=== PATIENT | male | born 1950 | race African-American/Black ===

== ENCOUNTER 2019-03-02 15:49 | Observation (INO) | payer MEDICARE, OTHER ==
[~2019-03-02 15:49] MED LIST: ENOXAPARIN SODIUM INJ 40 MG/0.4 ML DISP.SYRIN SUBCUT ONE
[2019-03-02] MEDS ORDERED: ACETAMINOPHEN 325 MG TABLET PO PRN (16:36)
[2019-03-02 16:57] LABS: ABSOLUTE BASOPHILS # (AUTO) 0.1 10^3/uL (0.0-0.2); ABSOLUTE EOSINOPHILS # (AUTO) 0.1 10^3/uL (0.0-0.6); ABSOLUTE MONOCYTES (AUTO) 1.3 10^3/uL (0.1-1.4); ABSOLUTE NEUT (AUTO) 9.6 10^3/uL (1.7-8.2); HEMATOCRIT 34.2 % (37.9-51.0); HEMOGLOBIN 11.6 g/dL (13.5-17.0); LYMPHOCYTES % (AUTO) 21.3 % (13-45); MEAN CORPUSCULAR HEMOGLOBIN 31.1 pg (27.0-33.4); MEAN CORPUSCULAR HGB CONC 34.1 g/dL (32.0-36.0); MEAN CORPUSCULAR VOLUME 91 fl (80-97); MONOCYTES % (AUTO) 9.2 % (3-13); PLATELET COUNT 272 10^3/uL (150-450); RED BLOOD COUNT 3.75 10^6/uL (4.35-5.55); RED CELL DISTRIBUTION WIDTH 12.8 % (11.5-14.0); SEGMENTED NEUTROPHILS % (AUTO) 67.5 % (42-78); TOTAL CELLS COUNTED % (AUTO) 100 %; WHITE BLOOD COUNT 14.2 10^3/uL (4.0-10.5)
[2019-03-02] MEDS ORDERED: DEXTROSE 50%-WATER SYRINGE 25 GM/50 ML DOSE IV PRN (17:00)
[2019-03-02] MEDS ORDERED: GLUCAGON,HUMAN RECOMB 1 MG INJ IM PRN (17:00)
[2019-03-02] MEDS ORDERED: DEXTROSE 40% GEL 15 GM TUBE PO PRN (17:00)
[2019-03-02] MEDS ORDERED: DEXTROSE 40% GEL 15 GM TUBE X 2 PO PRN (17:00)
[2019-03-02] MEDS ORDERED: DEXTROSE 50%-WATER SYRINGE 12.5 GM/25 ML DOSE IV PRN (17:00)
[2019-03-02 17:16] LABS: ALBUMIN 4.2 g/dL (3.5-5.0); ALKALINE PHOSPHATASE 81 U/L (38-126); ANION GAP 13 (5-19); ASPARTATE AMINO TRANSFERASE 37 U/L (17-59); BILIRUBIN,DIRECT 0.2 mg/dL (0.0-0.4); BILIRUBIN,TOTAL 0.4 mg/dL (0.2-1.3); BLOOD UREA NITROGEN 16 mg/dL (7-20); CALCIUM 9.7 mg/dL (8.4-10.2); CARBON DIOXIDE 26 mmol/L (22-30); CHLORIDE 99 mmol/L (98-107); GLUCOSE 145 mg/dL (75-110); POTASSIUM 4.4 mmol/L (3.6-5.0); TOTAL PROTEIN 7.3 g/dL (6.3-8.2)
[2019-03-02] MEDS: NORMAL SALINE 1000 ML 1,000 ML IV PRN (17:31)
[2019-03-02] MEDS ORDERED: LEVOFLOXACIN 750 MG/D5W RTU 750 MG/150 ML RTUPB IV ONE (18:00)
--- NOTE | 2019-03-02 19:17 | RADIOLOGY REPORT (SQ) ---
EXAM DESCRIPTION: CHEST 2 VIEWS COMPLETED DATE/TIME: 03/02/2019 6:59 pm REASON FOR STUDY: pneumonia COMPARISON: 09/24/2012 EXAM PARAMETERS: NUMBER OF VIEWS: two views TECHNIQUE: Digital Frontal and Lateral radiographic views of the chest acquired. RADIATION DOSE: NA LIMITATIONS: none FINDINGS: LUNGS AND PLEURA: No opacities, masses or pneumothorax. No pleural effusion. MEDIASTINUM AND HILAR STRUCTURES: No masses or contour abnormalities. HEART AND VASCULAR STRUCTURES: Heart normal size. No evidence for failure. BONES: No acute findings. HARDWARE: CABG. OTHER: No other significant finding. IMPRESSION: NO ACUTE RADIOGRAPHIC FINDING IN THE CHEST. TECHNICAL DOCUMENTATION: JOB ID: [id number] [employer]- All Rights Reserved Reading location - IP/workstation name: [email or web address]
--- NOTE | 2019-03-02 19:21 | PDOC H&P ---
History of Present Illness Admission Date/PCP: 03/02/19 15:49 MAXX PRAVEENAKARLAJoseluis Patient complains of: Cough, chest pain History of Present Illness: DEBORA EISENBERG is a 69 year old male known to my practice who presented to the office earlier today with 12 days history of worsening productive cough with associated chest pain upon coughing that started 3 days ago. Patient reported initial associated fever, chills, breaking out with sweats, headache, and wheezing. Patient reported use of OTC Coricidin HBP, Acetaminophen, Ibuprofen and Zyrtec for symptoms relief without any significant benefit. His initial evaluation in the office was significant for painful distress from chest pain, elevated blood pressure and laboratory findings including significant leukocy tosis with left shift. He did demonstrate frias-sinuses percussion tenderness. In view of his presentation and clinical findings, he was advised hospitalization for further evaluation and management. His morbidities include HTN, chronic gouty arthritis,CAD s/p CABG, Old SD, DM Type 2; Hyperlipidemia, Osteoarthritis, and Bee sting allergic reaction. Past Medical History Cardiac Medical History: Reports: Coronary Artery Disease, Myocardial Infarction, Hyperlipidema, Hypertension Endocrine Medical History: Reports: Diabetes Mellitus Type 2 Social History Smoking Status: Former Smoker Frequency of Alcohol Use: None Hx Recreational Drug Use: No Drugs: None Hx Prescription Drug Abuse: No - Advance Directive Resuscitation Status: Full Code Family History Family History: Reviewed & Not Pertinent Parental Family History Reviewed: Yes Children Family History Reviewed: Yes Sibling(s) Family History Reviewed.: Yes Medication/Allergy Home Medications: B-Complex with Vitamin C [Super B Complex-Vitamin C] 1 each PO DAILY 09/24/12 Colchicine [Colchicine 0.6 mg Tablet] 0.6 mg PO DAILY 09/24/12 Ezetimibe [Zetia 10 mg Tablet] 10 mg PO DAILY 09/24/12 Febuxostat [Uloric 40 mg Tablet] 40 mg PO DAILY 09/24/12 Glyburide/Metformin HCl [Glyburide-Metformin 5-500 mg] 1 each PO BID 09/24/12 [place]-3 Fatty Acids/Fish Oil [Fish Oil 1,000 mg Capsule] 1 each PO BID 09/24/12 Omeprazole [Prilosec 20 mg Capsule] 40 mg PO DAILY #0 09/24/12 Rosuvastatin Calcium [Crestor 20 mg Tablet] 20 mg PO DAILY 09/24/12 Valsartan/Hydrochlorothiazide [Diovan Hct 160-12.5 mg Tab] 1 tab PO DAILY 09/24/12 Vitamin A 8,000 unit PO DAILY 09/24/12 Allergies/Adverse Reactions: No Known Allergies Allergy (Unverified 09/24/12 13:16) Review of Systems Constitutional: PRESENT: chills, fever(s), headache(s), night sweats Eyes: ABSENT: visual disturbances Ears: ABSENT: hearing changes Nose, Mouth, and Throat: PRESENT: headache(s), sore throat Cardiovascular: PRESENT: chest pain - with coughing Respiratory: PRESENT: cough, sputum Gastrointestinal: ABSENT: abdominal pain, constipation, diarrhea, hematemesis, hematochezia, nausea, vomiting Musculoskeletal: ABSENT: joint swelling Integumentary: ABSENT: rash, wounds Neurological: ABSENT: abnormal gait, abnormal speech, confusion, dizziness, focal weakness, syncope Psychiatric: ABSENT: anxiety, depression, homidical ideation, suicidal ideation Endocrine: ABSENT: cold intolerance, heat intolerance, menstrual abnormalities, polydipsia, polyuria Hematologic/Lymphatic: ABSENT: easy bleeding, easy bruising, lymphadenopathy Allergic/Immunologic: ABSENT: seasonal rhinorrhea Physical Exam Vital Signs: Temp Pulse Resp BP Pulse Ox 98.1 F 87 18 155/89 H 100 03/02/19 16:09 03/02/19 16:09 03/02/19 16:09 03/02/19 16:09 03/02/19 16:09 Intake & Output 03/01/19 03/02/19 03/03/19 06:59 06:59 06:59 Weight 73.5 kg General appearance: PRESENT: mild distress - from pleurisy Head exam: PRESENT: atraumatic, normocephalic Eye exam: PRESENT: conjunctiva pink, EOMI, PERRLA. ABSENT: scleral icterus Ear exam: PRESENT: normal external ear exam Mouth exam: PRESENT: moist Neck exam: PRESENT: full ROM. ABSENT: carotid bruit, JVD, lymphadenopathy, thyromegaly Respiratory exam: PRESENT: clear to auscultation janes Cardiovascular exam: PRESENT: RRR. ABSENT: diastolic murmur, rubs, systolic murmur Vascular exam: ABSENT: pallor GI/Abdominal exam: PRESENT: normal bowel sounds, soft. ABSENT: distended, guarding, mass, organolmegaly, rebound, tenderness Rectal exam: PRESENT: deferred Extremities exam: ABSENT: pedal edema Musculoskeletal exam: PRESENT: ambulatory, normal inspection Neurological exam: PRESENT: alert, awake, oriented to person, oriented to place, oriented to time, oriented to situation, CN II-XII grossly intact. ABSENT: motor sensory deficit Psychiatric exam: PRESENT: appropriate affect, normal mood. ABSENT: homicidal ideation, suicidal ideation Skin exam: PRESENT: dry, warm Results Laboratory Results: 03/02/19 16:44 03/02/19 16:44 03/02/19 03/02/19 16:44 16:44 WBC 14.2 H RBC 3.75 L Hgb 11.6 L Hct 34.2 L MCV 91 MCH 31.1 MCHC 34.1 RDW 12.8 Plt Count 272 Seg Neutrophils % 67.5 Sodium 137.9 Potassium 4.4 Chloride 99 Carbon Dioxide 26 Anion Gap 13 BUN 16 Creatinine 0.70 Est GFR ( Amer) > 60 Glucose 145 H Calcium 9.7 Total Bilirubin 0.4 AST 37 Alkaline Phosphatase 81 Total Protein 7.3 Albumin 4.2 Assessment & Plan - Diagnosis (1) CAP (community acquired pneumonia) Qualifiers: Lung location: unspecified part of lung Is this a current diagnosis for this admission?: Yes Plan: See admitting attending physician orders for details about care plan. (2) Acute sinusitis with symptoms > 10 days Is this a current diagnosis for this admission?: Yes Plan: See admitting attending physician orders for details about care plan. (3) Diabetes mellitus type 2 in nonobese Is this a current diagnosis for this admission?: Yes Plan: See admitting attending physician orders for details about care plan. (4) HTN (hypertension) Qualifiers: Hypertension type: essential hypertension Qualified Code(s): I10 - Essential (primary) hypertension Is this a current diagnosis for this admission?: Yes Plan: See admitting attending physician orders for details about care plan. (5) HLD (hyperlipidemia) Qualifiers: Hyperlipidemia type: unspecified Qualified Code(s): E78.5 - Hyperlipidemia, unspecified Is this a current diagnosis for this admission?: Yes Plan: See admitting attending physician orders for details about care plan. (6) CAD (coronary atherosclerotic disease) Qualifiers: Coronary Disease-Associated Artery/Lesion type: [place] artery [place] vs. transplanted heart: [place] heart Associated angina: without angina Qualified Code(s): I25.10 - Atherosclerotic heart disease of [place] coronary artery without angina pectoris Is this a current diagnosis for this admission?: Yes Plan: See admitting attending physician orders for details about care plan. (7) H/O heart bypass surgery Is this a current diagnosis for this admission?: Yes Plan: See admitting attending physician orders for details about care plan. (8) Chronic gouty arthritis Is this a current diagnosis for this admission?: Yes Plan: See admitting attending physician orders for details about care plan. (9) Osteoarthritis involving multiple joints on both sides of body Is this a current diagnosis for this admission?: Yes Plan: See admitting attending physician orders for details about care plan. (10) Bee sting allergy Is this a current diagnosis for this admission?: Yes Plan: See admitting attending physician orders for details about care plan. - Time Time Spent: 50 to 70 Minutes Medications reviewed and adjusted accordingly: Yes Anticipated discharge: Home Within: Other - Inpatient Certification Based on my medical assessment, after consideration of the patient's comorbidities, presenting symptoms, or acuity I expect that the services needed warrant INPATIENT care.: Yes I certify that my determination is in accordance with my understanding of Medicare's requirements for reasonable and necessary INPATIENT services [42 CFR 412.3e].: Yes Medical Necessity: Significant Comorbidiites Make Outpatient Treatment Too Risky, Need Close Monitoring Due to Risk of Patient Decompensation, Need For IV Fluids, Need For Continuous Telemetry Monitoring, Need for IV Antibiotics, Risk of Complication if Not Cared For in Hospital, Risk of Diagnosis Which Will Require Inpatient Eval/Care/Monitoring Post Hospital Care: D/C Roadway 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
--- NOTE | 2019-03-02 19:35 | ADVANCED CARE ---
Attendance: Patient and spouse. Resuscitation Status: Do Not Resuscitate Discussion: Patient want to be on DNR status. Care Planning Goals: Continue current curative therapy but if there is cardiac arrest patient decided to be DNR. Document(s) Completed: I will change his code status to DNR. Time Spent: 15 minutes.
[2019-03-02] MEDS: GUAIFENESIN SYRP 200 MG/10 ML UDC PO PRN (19:55)
[2019-03-02] MEDS ORDERED: LORATADINE 10 MG TABLET PO PRN (20:47)
[2019-03-02] MEDS: INSULIN LISPRO 100 UNIT/ML 3 ML VIAL SUBCUT SCH (22:14)
[2019-03-02] MEDS: CEFEPIME HCL 2 GM in DEXTROSE 5%-WATER 50 ML IV SCH (22:16)
[2019-03-03] MEDS: PANTOPRAZOLE SODIUM 40 MG TABLET.DR PO SCH (06:12)
[2019-03-03] MEDS: GUAIFENESIN SYRP 200 MG/10 ML UDC PO PRN ×2 (06:13→22:12)
[2019-03-03 07:12] LABS: ANION GAP 11 (5-19); BLOOD UREA NITROGEN 13 mg/dL (7-20); CALCIUM 9.3 mg/dL (8.4-10.2); CARBON DIOXIDE 25 mmol/L (22-30); CHLORIDE 102 mmol/L (98-107); GLUCOSE 149 mg/dL (75-110); POTASSIUM 4.6 mmol/L (3.6-5.0)
[2019-03-03] MEDS: NORMAL SALINE 1000 ML 1,000 ML IV PRN (08:33)
[2019-03-03 09:15] LABS: ABSOLUTE BASOPHILS # (AUTO) 0.1 10^3/uL (0.0-0.2); ABSOLUTE EOSINOPHILS # (AUTO) 0.2 10^3/uL (0.0-0.6); ABSOLUTE LYMPHOCYTES (AUTO) 2.8 10^3/uL (0.5-4.7); ABSOLUTE NEUT (AUTO) 6.8 10^3/uL (1.7-8.2); BASOPHILS % (AUTO) 0.6 % (0-2); EOSINOPHILS % (AUTO) 1.6 % (0-6); HEMATOCRIT 32.4 % (37.9-51.0); HEMOGLOBIN 11.8 g/dL (13.5-17.0); LYMPHOCYTES % (AUTO) 25.7 % (13-45); MEAN CORPUSCULAR HEMOGLOBIN 35.3 pg (27.0-33.4); MEAN CORPUSCULAR HGB CONC 36.3 g/dL (32.0-36.0); MONOCYTES % (AUTO) 9.1 % (3-13); PLATELET COUNT 259 10^3/uL (150-450); RED BLOOD COUNT 3.33 10^6/uL (4.35-5.55); TOTAL CELLS COUNTED % (AUTO) 100 %; WHITE BLOOD COUNT 10.7 10^3/uL (4.0-10.5)
[2019-03-03 09:16] LABS: MEAN CORPUSCULAR VOLUME 97 fl (80-97)
[2019-03-03] MEDS: ENOXAPARIN SODIUM INJ 40 MG/0.4 ML DISP.SYRIN SUBCUT SCH (09:47)
[2019-03-03] MEDS: INSULIN LISPRO 100 UNIT/ML 3 ML VIAL SUBCUT SCH ×4 (09:47→22:11)
[2019-03-03] MEDS: CEFEPIME HCL 2 GM in DEXTROSE 5%-WATER 50 ML IV SCH ×2 (09:47→22:10)
--- NOTE | 2019-03-03 17:40 | PDOC PROGRESS REPORT ---
Subjective Progress Note for:: 03/03/19 Subjective:: Patient reported chills and sweating. Post nasal drip is less. Continue to experience chest pain with coughing but less sputum production. No difficulty with breathing. Reason For Visit: COMMUNITY AQUIRED PNEUMONIA,SINUSITIS Physical Exam Vital Signs: Temp Pulse Resp BP Pulse Ox 98.4 F 69 16 137/90 H 97 03/03/19 04:08 03/03/19 07:00 03/03/19 04:08 03/03/19 04:08 03/03/19 04:08 Intake & Output 03/02/19 03/03/19 03/04/19 06:59 06:59 06:59 Intake Total 908 Balance 908 Weight 73.5 kg General appearance: PRESENT: no acute distress Head exam: PRESENT: atraumatic, normocephalic Eye exam: PRESENT: conjunctiva pink, EOMI, PERRLA. ABSENT: scleral icterus Ear exam: PRESENT: normal external ear exam Mouth exam: PRESENT: moist Throat exam: PRESENT: post pharyngeal erythema Neck exam: PRESENT: full ROM. ABSENT: carotid bruit, JVD, lymphadenopathy, thyr omegaly Respiratory exam: PRESENT: clear to auscultation janes Cardiovascular exam: PRESENT: RRR. ABSENT: diastolic murmur, rubs, systolic murmur Vascular exam: ABSENT: pallor GI/Abdominal exam: PRESENT: normal bowel sounds, soft. ABSENT: distended, guarding, mass, organolmegaly, rebound, tenderness Extremities exam: ABSENT: joint swelling Musculoskeletal exam: PRESENT: normal inspection Neurological exam: PRESENT: alert, awake, oriented to person, oriented to place, oriented to time, oriented to situation, CN II-XII grossly intact. ABSENT: motor sensory deficit Psychiatric exam: PRESENT: appropriate affect, normal mood. ABSENT: homicidal ideation, suicidal ideation Skin exam: PRESENT: dry, warm Results Laboratory Results: 03/03/19 06:02 03/02/19 03/02/19 03/03/19 16:44 16:44 06:02 WBC 14.2 H Cancelled RBC 3.75 L Cancelled Hgb 11.6 L Cancelled Hct 34.2 L Cancelled MCV 91 Cancelled MCH 31.1 Cancelled MCHC 34.1 Cancelled RDW 12.8 Cancelled Plt Count 272 Cancelled Seg Neutrophils % 67.5 Cancelled Sodium 137.9 Potassium 4.4 Chloride 99 Carbon Dioxide 26 Anion Gap 13 BUN 16 Creatinine 0.70 Est GFR ( Amer) > 60 Glucose 145 H Calcium 9.7 Total Bilirubin 0.4 AST 37 Alkaline Phosphatase 81 Total Protein 7.3 Albumin 4.2 03/03/19 06:02 WBC RBC Hgb Hct MCV MCH MCHC RDW Plt Count Seg Neutrophils % Sodium 137.5 Potassium 4.6 Chloride 102 Carbon Dioxide 25 Anion Gap 11 BUN 13 Creatinine 0.76 Est GFR ( Amer) > 60 Glucose 149 H Calcium 9.3 Total Bilirubin AST Alkaline Phosphatase Total Protein Albumin Impressions: Chest X-Ray 03/02/19 00:00 IMPRESSION: NO ACUTE RADIOGRAPHIC FINDING IN THE CHEST. Assessment & Plan - Diagnosis (1) CAP (community acquired pneumonia) Qualifiers: Lung location: unspecified part of lung Is this a current diagnosis for this admission?: Yes (2) Acute sinusitis with symptoms > 10 days Is this a current diagnosis for this admission?: Yes (3) Diabetes mellitus type 2 in nonobese Is this a current diagnosis for this admission?: Yes (4) HTN (hypertension) Qualifiers: Hypertension type: essential hypertension Qualified Code(s): I10 - Essential (primary) hypertension Is this a current diagnosis for this admission?: Yes (5) HLD (hyperlipidemia) Qualifiers: Hyperlipidemia type: unspecified Qualified Code(s): E78.5 - Hyperlipidemia, unspecified Is this a current diagnosis for this admission?: Yes (6) CAD (coronary atherosclerotic disease) Qualifiers: Coronary Disease-Associated Artery/Lesion type: [place] artery [place] vs. transplanted heart: [place] heart Associated angina: without angina Qualified Code(s): I25.10 - Atherosclerotic heart disease of [place] coronary artery without angina pectoris Is this a current diagnosis for this admission?: Yes (7) H/O heart bypass surgery Is this a current diagnosis for this admission?: Yes (8) Chronic gouty arthritis Is this a current diagnosis for this admission?: Yes (9) Osteoarthritis involving multiple joints on both sides of body Is this a current diagnosis for this admission?: Yes (10) Bee sting allergy Is this a current diagnosis for this admission?: Yes - Time Time Spent with patient: 25-34 minutes Medications reviewed and adjusted accordingly: Yes Anticipated discharge: Home Within: Other - Inpatient Certification Based on my medical assessment, after consideration of the patient's comorbidities, presenting symptoms, or acuity I expect that the services needed warrant INPATIENT care.: Yes I certify that my determination is in accordance with my understanding of Medicare's requirements for reasonable and necessary INPATIENT services [42 CFR 412.3e].: Yes Medical Necessity: Significant Comorbidiites Make Outpatient Treatment Too Risky, Need Close Monitoring Due to Risk of Patient Decompensation, Need For IV Fluids, Need For Continuous Telemetry Monitoring, Need for IV Antibiotics, Risk of Complication if Not Cared For in Hospital, Risk of Diagnosis Which Will Require Inpatient Eval/Care/Monitoring Post Hospital Care: D/C Foil 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 Follow up on culture findings. Obtain CBC with diff in AM.
[2019-03-03 17:53] LABS: ABSOLUTE BASOPHILS # (AUTO) 0.1 10^3/uL (0.0-0.2); ABSOLUTE EOSINOPHILS # (AUTO) 0.2 10^3/uL (0.0-0.6); BASOPHILS % (AUTO) 0.9 % (0-2); EOSINOPHILS % (AUTO) 1.8 % (0-6); HEMATOCRIT 32.8 % (37.9-51.0); HEMOGLOBIN 11.5 g/dL (13.5-17.0); LYMPHOCYTES % (AUTO) 26.4 % (13-45); MEAN CORPUSCULAR HEMOGLOBIN 32.7 pg (27.0-33.4); MEAN CORPUSCULAR VOLUME 94 fl (80-97); MONOCYTES % (AUTO) 8.9 % (3-13); PLATELET COUNT 259 10^3/uL (150-450); TOTAL CELLS COUNTED % (AUTO) 100 %; WHITE BLOOD COUNT 11.3 10^3/uL (4.0-10.5)
[2019-03-03] MEDS ORDERED: OMEGA PO SCH (18:00)
[2019-03-03] MEDS ORDERED: METFORMIN HCL PO SCH (18:00)
[2019-03-03] MEDS ORDERED: GLYBURIDE PO SCH (18:00)
[2019-03-03] MEDS ORDERED: FATTY ACIDS PO SCH (18:00)
[2019-03-03] MEDS: LEVOFLOXACIN 750 MG/D5W RTU 750 MG/150 ML RTUPB IV SCH (18:05)
[2019-03-03] MEDS: GLYBURIDE 5 MG TABLET PO SCH (18:43)
[2019-03-03] MEDS: OMEGA-3 ACID ETHYL ESTERS 1 GM CAPSULE PO SCH (18:43)
[2019-03-03] MEDS: METFORMIN HCL 500 MG TABLET PO SCH (18:43)
[2019-03-03] MEDS: SIMVASTATIN 40 MG TABLET PO SCH (22:12)
[2019-03-03] MEDS: EZETIMIBE 10 MG TABLET PO SCH (22:12)
[2019-03-04] MEDS: PANTOPRAZOLE SODIUM 40 MG TABLET.DR PO SCH ×2 (05:32→05:41)
[2019-03-04] MEDS: NORMAL SALINE 1000 ML 1,000 ML IV PRN ×2 (05:35→20:55)
[2019-03-04] MEDS: INSULIN LISPRO 100 UNIT/ML 3 ML VIAL SUBCUT SCH ×4 (08:58→21:44)
[2019-03-04] MEDS: METFORMIN HCL 500 MG TABLET PO SCH ×2 (09:59→18:15)
[2019-03-04] MEDS: GLYBURIDE 5 MG TABLET PO SCH ×2 (09:59→18:15)
[2019-03-04] MEDS: HYDROCHLOROTHIAZIDE 12.5 MG TABLET PO SCH (09:59)
[2019-03-04] MEDS ORDERED: LYCOPENE PO SCH (10:00)
[2019-03-04] MEDS: LOSARTAN POTASSIUM 50 MG TABLET PO SCH (10:00)
[2019-03-04] MEDS ORDERED: [UNRECOGNIZED DRUG - OTHER] PO SCH (10:00)
[2019-03-04] MEDS: OMEGA-3 ACID ETHYL ESTERS 1 GM CAPSULE PO SCH ×2 (10:00→18:15)
[2019-03-04] MEDS ORDERED: (PENDING PHARMACY ID) (Losartan/Hydrochlorothiazide [Losartan-Hctz 50-12.5 Mg Tab] 1 EACH) PO SCH (10:00)
[2019-03-04] MEDS ORDERED: MULTIVIT MINERALS PO SCH (10:00)
[2019-03-04] MEDS ORDERED: [UNRECOGNIZED DRUG - OTHER] PO SCH (10:00)
[2019-03-04] MEDS ORDERED: SIMVASTATIN PO SCH (10:00)
[2019-03-04] MEDS: ALLOPURINOL 100 MG TABLET PO SCH (10:00)
[2019-03-04] MEDS: MULTIVITAMIN TABLET PO SCH (10:00)
[2019-03-04] MEDS: ASPIRIN 81 MG TABLET, ENT COATED PO SCH (10:00)
[2019-03-04] MEDS ORDERED: EZETIMIBE PO SCH (10:00)
[2019-03-04] MEDS: CEFEPIME HCL 2 GM in DEXTROSE 5%-WATER 50 ML IV SCH (10:04)
[2019-03-04] MEDS: ENOXAPARIN SODIUM INJ 40 MG/0.4 ML DISP.SYRIN SUBCUT SCH (10:06)
[2019-03-04] MEDS: LEVOFLOXACIN 750 MG/D5W RTU 750 MG/150 ML RTUPB IV SCH (18:17)
--- NOTE | 2019-03-04 18:47 | PDOC PROGRESS REPORT ---
Subjective Progress Note for:: 03/04/19 Subjective:: Patient reported improvement in his nasal and sinus congestion but had episode of near choking last night. No chest pain. Coughing remain productive. No fever or chills. Remain on IV antibiotic therapy. No nausea. vomiting or abdominal pain. Reason For Visit: COMMUNITY AQUIRED PNEUMONIA,SINUSITIS Physical Exam Vital Signs: Temp Pulse Resp BP Pulse Ox 97.6 F 71 20 148/83 H 98 03/04/19 17:00 03/04/19 17:00 03/04/19 17:00 03/04/19 17:00 03/04/19 17:00 Intake & Output 03/03/19 03/04/19 03/05/19 06:59 06:59 06:59 Intake Total 1908 2928 748 Output Total 300 Balance 1908 2628 748 Weight 73.5 kg 79.1 kg Physical Exam: General appearance: PRESENT: no acute distress Head exam: PRESENT: atraumatic, normocephalic Eye exam: PRESENT: conjunctiva pink, EOMI, PERRLA. ABSENT: pallor, scleral icterus Ear exam: PRESENT: normal external ear exam Mouth exam: PRESENT: moist Throat exam: PRESENT: resolved post pharyngeal erythema Neck exam: PRESENT: full ROM. ABSENT: carotid bruit, JVD, lymphadenopathy, thyr oidal Respiratory exam: PRESENT: clear to auscultation janes Cardiovascular exam: PRESENT: RRR. ABSENT: diastolic murmur, rubs, systolic murmur GI/Abdominal exam: PRESENT: normal bowel sounds, soft. ABSENT: distended, guarding, mass, organomegaly, rebound, tenderness Extremities exam: ABSENT: joint swelling Musculoskeletal exam: PRESENT: normal inspection Neurological exam: PRESENT: alert, awake, oriented to person, oriented to place, oriented to time, oriented to situation, CN II-XII grossly intact. ABSENT: motor sensory deficit Psychiatric exam: PRESENT: appropriate affect, normal mood. ABSENT: homicidal ideation, suicidal ideation Skin exam: PRESENT: dry, warm Results Laboratory Results: 03/03/19 17:45 03/03/19 06:02 03/02/19 18:10 Sputum Gram Stain - Final 03/02/19 18:10 Sputum Sputum Culture - Final NORMAL CHEL Impressions: Chest X-Ray 03/02/19 00:00 IMPRESSION: NO ACUTE RADIOGRAPHIC FINDING IN THE CHEST. Assessment & Plan - Diagnosis (1) CAP (community acquired pneumonia) Qualifiers: Lung location: unspecified part of lung Is this a current diagnosis for this admission?: Yes (2) Acute sinusitis with symptoms > 10 days Is this a current diagnosis for this admission?: Yes (3) Diabetes mellitus type 2 in nonobese Is this a current diagnosis for this admission?: Yes (4) HTN (hypertension) Qualifiers: Hypertension type: essential hypertension Qualified Code(s): I10 - Essential (primary) hypertension Is this a current diagnosis for this admission?: Yes (5) HLD (hyperlipidemia) Qualifiers: Hyperlipidemia type: unspecified Qualified Code(s): E78.5 - Hyperlipidemia, unspecified Is this a current diagnosis for this admission?: Yes (6) CAD (coronary atherosclerotic disease) Qualifiers: Coronary Disease-Associated Artery/Lesion type: [place] artery [place] vs. transplanted heart: [place] heart Associated angina: without angina Qualified Code(s): I25.10 - Atherosclerotic heart disease of [place] coronary artery without angina pectoris Is this a current diagnosis for this admission?: Yes (7) H/O heart bypass surgery Is this a current diagnosis for this admission?: Yes (8) Chronic gouty arthritis Is this a current diagnosis for this admission?: Yes (9) Osteoarthritis involving multiple joints on both sides of body Is this a current diagnosis for this admission?: Yes (10) Bee sting allergy Is this a current diagnosis for this admission?: Yes - Time Time Spent with patient: 25-34 minutes Medications reviewed and adjusted accordingly: Yes Anticipated discharge: Home Within: within 24 hours - Inpatient Certification Based on my medical assessment, after consideration of the patient's comorbidities, presenting symptoms, or acuity I expect that the services needed warrant INPATIENT care.: Yes I certify that my determination is in accordance with my understanding of [facility]'s requirements for reasonable and necessary INPATIENT services [42 CFR 412.3e].: Yes Medical Necessity: Significant Comorbidiites Make Outpatient Treatment Too Risky, Need Close Monitoring Due to Risk of Patient Decompensation, Need For IV Fluids, Need For Continuous Telemetry Monitoring, Need for IV Antibiotics, Risk of Complication if Not Cared For in Hospital, Risk of Diagnosis Which Will Require Inpatient Eval/Care/Monitoring Post Hospital Care: D/C Welt Slasher Documentation - Plan Summary Plan Summary: Obtain CBC with diff in am. Continue IV Cefepime and Levofloxacin coverage.
[2019-03-04 19:16] LABS: ABSOLUTE BASOPHILS # (AUTO) 0.1 10^3/uL (0.0-0.2); ABSOLUTE EOSINOPHILS # (AUTO) 0.4 10^3/uL (0.0-0.6); ABSOLUTE LYMPHOCYTES (AUTO) 3.5 10^3/uL (0.5-4.7); ABSOLUTE NEUT (AUTO) 8.5 10^3/uL (1.7-8.2); EOSINOPHILS % (AUTO) 2.8 % (0-6); HEMATOCRIT 34.8 % (37.9-51.0); HEMOGLOBIN 12.1 g/dL (13.5-17.0); LYMPHOCYTES % (AUTO) 25.6 % (13-45); MEAN CORPUSCULAR HEMOGLOBIN 32.1 pg (27.0-33.4); MEAN CORPUSCULAR HGB CONC 34.7 g/dL (32.0-36.0); MEAN CORPUSCULAR VOLUME 93 fl (80-97); MONOCYTES % (AUTO) 7.7 % (3-13); PLATELET COUNT 290 10^3/uL (150-450); RED BLOOD COUNT 3.76 10^6/uL (4.35-5.55); RED CELL DISTRIBUTION WIDTH 12.6 % (11.5-14.0); SEGMENTED NEUTROPHILS % (AUTO) 62.9 % (42-78); TOTAL CELLS COUNTED % (AUTO) 100 %; WHITE BLOOD COUNT 13.5 10^3/uL (4.0-10.5)
[2019-03-04] MEDS: CEFEPIME 2 GM/D5W RTU 2 GM/50 ML RTUPB IV SCH (21:44)
[2019-03-04] MEDS: EZETIMIBE 10 MG TABLET PO SCH (21:44)
[2019-03-04] MEDS: SIMVASTATIN 40 MG TABLET PO SCH (21:46)
[2019-03-05] MEDS: PANTOPRAZOLE SODIUM 40 MG TABLET.DR PO SCH (06:47)
[2019-03-05] MEDS: INSULIN LISPRO 100 UNIT/ML 3 ML VIAL SUBCUT SCH ×3 (08:28→16:56)
[2019-03-05] MEDS: ALLOPURINOL 100 MG TABLET PO SCH (09:45)
[2019-03-05] MEDS: HYDROCHLOROTHIAZIDE 12.5 MG TABLET PO SCH (09:45)
[2019-03-05] MEDS: OMEGA-3 ACID ETHYL ESTERS 1 GM CAPSULE PO SCH ×2 (09:45→17:08)
[2019-03-05] MEDS: ASPIRIN 81 MG TABLET, ENT COATED PO SCH (09:46)
[2019-03-05] MEDS: METFORMIN HCL 500 MG TABLET PO SCH ×2 (09:46→17:08)
[2019-03-05] MEDS: MULTIVITAMIN TABLET PO SCH (09:46)
[2019-03-05] MEDS: GLYBURIDE 5 MG TABLET PO SCH ×2 (09:47→17:08)
[2019-03-05] MEDS: LOSARTAN POTASSIUM 50 MG TABLET PO SCH (09:47)
[2019-03-05] MEDS: ENOXAPARIN SODIUM INJ 40 MG/0.4 ML DISP.SYRIN SUBCUT SCH (09:49)
[2019-03-05] MEDS: CEFEPIME 2 GM/D5W RTU 2 GM/50 ML RTUPB IV SCH (09:50)
[2019-03-05] MEDS: NORMAL SALINE 1000 ML 1,000 ML IV PRN (10:40)
[2019-03-05] MEDS ORDERED: LEVOFLOXACIN 750 MG TABLET PO SCH (18:00)
[2019-03-05 19:41] LABS: ABSOLUTE BASOPHILS # (AUTO) 0.1 10^3/uL (0.0-0.2); ABSOLUTE EOSINOPHILS # (AUTO) 0.4 10^3/uL (0.0-0.6); ABSOLUTE LYMPHOCYTES (AUTO) 3.6 10^3/uL (0.5-4.7); ABSOLUTE MONOCYTES (AUTO) 0.9 10^3/uL (0.1-1.4); ABSOLUTE NEUT (AUTO) 8.5 10^3/uL (1.7-8.2); BASOPHILS % (AUTO) 0.6 % (0-2); EOSINOPHILS % (AUTO) 2.7 % (0-6); HEMATOCRIT 34.6 % (37.9-51.0); HEMOGLOBIN 11.8 g/dL (13.5-17.0); MEAN CORPUSCULAR HEMOGLOBIN 30.5 pg (27.0-33.4); MEAN CORPUSCULAR HGB CONC 34.1 g/dL (32.0-36.0); MEAN CORPUSCULAR VOLUME 90 fl (80-97); MONOCYTES % (AUTO) 6.8 % (3-13); PLATELET COUNT 298 10^3/uL (150-450); RED BLOOD COUNT 3.87 10^6/uL (4.35-5.55); RED CELL DISTRIBUTION WIDTH 12.8 % (11.5-14.0); SEGMENTED NEUTROPHILS % (AUTO) 62.9 % (42-78); TOTAL CELLS COUNTED % (AUTO) 100 %; WHITE BLOOD COUNT 13.5 10^3/uL (4.0-10.5)
--- NOTE | 2019-03-05 20:13 | PDOC DISCHARGE SUMMARY ---
General - Admit/Disc Date/PCP Admission Date/Primary Care Provider: 03/02/19 15:49 MAXX MCKEON MD Discharge Date: 03/05/19 - Discharge Diagnosis (1) CAP (community acquired pneumonia) Is this a current diagnosis for this admission?: Yes (2) Acute sinusitis with symptoms > 10 days Is this a current diagnosis for this admission?: Yes (3) Diabetes mellitus type 2 in nonobese Is this a current diagnosis for this admission?: Yes (4) HTN (hypertension) Is this a current diagnosis for this admission?: Yes (5) HLD (hyperlipidemia) Is this a current diagnosis for this admission?: Yes (6) CAD (coronary atherosclerotic disease) Is this a current diagnosis for this admission?: Yes (7) H/O heart bypass surgery Is this a current diagnosis for this admission?: Yes (8) Chronic gouty arthritis Is this a current diagnosis for this admission?: Yes (9) Osteoarthritis involving multiple joints on both sides of body Is this a current diagnosis for this admission?: Yes (10) Bee sting allergy Is this a current diagnosis for this admission?: Yes - Additional Information Resuscitation Status: Do Not Resuscitate Prescriptions: Loratadine [Claritin 10 mg Tablet] 10 mg PO DAILY #30 tablet Levofloxacin [Levaquin 500 mg Tablet] 500 mg PO DAILY #5 tablet Home Medications: Acetaminophen [Tylenol] 500 mg PO DAILY 03/03/19 Allopurinol [Zyloprim 100 mg Tablet] 100 mg PO DAILY 03/03/19 Aspirin [Ecotrin 81 mg EC Tablet] 81 mg PO DAILY 03/03/19 Ezetimibe/Simvastatin [Ezetimibe-Simvastatin 10-40 mg] 1 each PO DAILY 03/03/19 Glucosam/Chondr/Collagn/Hyalur [Glucosamine & Chondroitin Cap] 1 each PO DAILY 03/03/19 Glyburide/Metformin HCl [Glyburide-Metformin 5-500 mg] 1 each PO BID 03/03/19 Losartan/Hydrochlorothiazide [Losartan-Hctz 50-12.5 mg Tab] 1 each PO DAILY 03/03/19 Multivit-Minerals/FA/Lycopene [One Daily For Men Tablet] 1 each PO DAILY 03/03/19 Savage-3 Fatty Acids [Savage-3] 2,000 mg PO BID 03/03/19 Levofloxacin [Levaquin 500 mg Tablet] 500 mg PO DAILY #5 tablet 03/05/19 Loratadine [Claritin 10 mg Tablet] 10 mg PO DAILY #30 tablet 03/05/19 History of Present Illness Patient complains of: Productive cough, chest pain upon coughing, fever History of Present Illness: DEBORA EISENBERG is a 69 year old male known to my practice who presented to the office earlier today with 12 days history of worsening productive cough with associated chest pain upon coughing that started 3 days ago. Patient reported initial associated fever, chills, breaking out with sweats, headache, and wheezing. Patient reported use of OTC Coricidin HBP, Acetaminophen, Ibuprofen and Zyrtec for symptoms relief without any significant benefit. His initial evaluation in the office was significant for painful distress from chest pain, elevated blood pressure and laboratory findings including significant leukocytosis with left shift. He did demonstrate frias-sinuses percussion te nderness. In view of his presentation and clinical findings, he was advised hospitalization for further evaluation and management. His morbidities include DM Type 2; Hyperlipidemia, Hypertension, chronic gouty arthritis,CAD s/p CABG, Old [place], Osteoarthritis, and Bee sting allergic reaction. Hospital Course Hospital Course: He was admitted with concern for community acquired pneumonia and sinusitis with significant leukocytosis. His chest X ray was devoid of any acute process. He was treated with IV antibiotic and oral antihistamine. His sputum culture r evealed normal juancarlos but his blood culture is no growth at the time of his discharge. His leukocytosis did show slight improvement with significant resolution f his associated presenting symptoms. He will be discharged home today and follow up in the office as instructed upon discharge. Physical Exam Vital Signs: Temp Pulse Resp BP Pulse Ox 97.6 F 76 18 150/88 H 100 03/05/19 16:42 03/05/19 16:42 03/05/19 16:42 03/05/19 16:42 03/05/19 16:42 Intake & Output 03/04/19 03/05/19 03/06/19 06:59 06:59 06:59 Intake Total 2928 2468 2210 Output Total 300 600 Balance 2628 2468 1610 Weight 79.1 kg 75.6 kg Physical Exam: General appearance: PRESENT: no acute distress Head exam: PRESENT: atraumatic, normocephalic Eye exam: PRESENT: conjunctiva pink, EOMI, PERRLA. ABSENT: pallor, scleral icterus Ear exam: PRESENT: normal external ear exam Mouth exam: PRESENT: moist Throat exam: PRESENT: resolved post pharyngeal erythema Neck exam: PRESENT: full ROM. ABSENT: carotid bruit, JVD, lymphadenopathy, thyroidal Respiratory exam: PRESENT: clear to auscultation janes Cardiovascular exam: PRESENT: RRR. ABSENT: diastolic murmur, rubs, systolic murmur GI/Abdominal exam: PRESENT: normal bowel sounds, soft. ABSENT: distended, guarding, mass, organomegaly, rebound, tenderness Extremities exam: ABSENT: joint swelling Musculoskeletal exam: PRESENT: normal inspection Neurological exam: PRESENT: alert, awake, oriented to person, oriented to place, oriented to time, oriented to situation, CN II-XII grossly intact. ABSENT: motor sensory deficit Psychiatric exam: PRESENT: appropriate affect, normal mood. ABSENT: homicidal ideation, suicidal ideation Skin exam: PRESENT: dry, warm Results Laboratory Results: 03/05/19 19:23 03/03/19 06:02 03/05/19 19:23 WBC 13.5 H RBC 3.87 L Hgb 11.8 L Hct 34.6 L MCV 90 MCH 30.5 MCHC 34.1 RDW 12.8 Plt Count 298 Seg Neutrophils % 62.9 Impressions: Chest X-Ray 03/02/19 00:00 IMPRESSION: NO ACUTE RADIOGRAPHIC FINDING IN THE CHEST. Qualifiers - * PATIENT BEING DISCHARGED WITH ANY OF THE FOLLOWING DIAGNOSIS: No Acute Heart Failure - Is this a Heart Failure Patient?: No Plan Discharge Plan: Discharge home today and follow up in the office as instructed upon discharge.
[2019-03-05 21:08] VITALS: BP 133/80
== END 2019-03-05 21:18 | disposition home or self-care (01) ==
LOC: INTOOBSV 15:49 → UNDOADMIN 15:49 → 5 15:49
PROVIDERS: ADMIT Internal Medicine Geriatric Medicine; ATTEND Internal Medicine Geriatric Medicine
DX: J18.9 Pneumonia, unspecified organism (principal); J01.90 Acute sinusitis, unspecified; E11.9 Type 2 diabetes mellitus without complications; I10 Essential (primary) hypertension; E78.5 Hyperlipidemia, unspecified; I25.10 Atherosclerotic heart disease of native coronary artery without angina pectoris; Z95.1 Presence of aortocoronary bypass graft; M1A.9XX0 Chronic gout, unspecified, without tophus (tophi); M15.9 Polyosteoarthritis, unspecified; I25.2 Old myocardial infarction; R09.89 Other specified symptoms and signs involving the circulatory and respiratory systems; Z66 Do not resuscitate; Z91.030 Bee allergy status; Z79.82 Long term (current) use of aspirin; Z79.899 Other long term (current) drug therapy; Z79.84 Long term (current) use of oral hypoglycemic drugs; Z87.891 Personal history of nicotine dependence
CPT/HCPCS: 36415 ×4; 87040; 87070 ×2; 87205; 82962 ×4; 85025 ×4; 80048; 80053; 71046; G0379; G0378 ×3; G0103; A9270 ×29; J1650 ×4; J0692 ×5; J7060 ×3; J7030 ×4; J1956 ×3; J3490 ×3; J1815

== ENCOUNTER 2019-07-12 11:56 | Inpatient (IN) | payer MEDICARE, OTHER ==
--- NOTE | 2019-07-12 13:58 | ER Document Report ---
HPI - HPI Time Seen by Provider: 07/12/19 13:43 Pain Level: 5 Notes: 69-year-old male patient presents emergency department with fever, chills, nausea and abdominal pain. Patient is a direct admit from Dr. Ivy. He has orders in place. He states his symptoms have been going on for about 2 days. He reports that he had diarrhea but this has now subsided. - REPRODUCTIVE Reproductive: DENIES: : Past Medical History - General Information source: Patient - Social History Smoking Status: Unknown if Ever Smoked Frequency of alcohol use: None Drug Abuse: None Family History: Reviewed & Not Pertinent Patient has suicidal ideation: No Patient has homicidal ideation: No - Past Medical History Cardiac Medical History: Reports: Hx Coronary Artery Disease, Hx Heart Attack, Hx Hypercholesterolemia, Hx Hypertension Endocrine Medical History: Reports: Hx Diabetes Mellitus Type 2 Past Surgical History: Reports: Hx Cardiac Surgery - bypass x5, x1 stent - Immunizations Hx Pneumococcal Vaccination: 09/25/12 Vertical Provider Document - CONSTITUTIONAL Notes: PHYSICAL EXAMINATION: GENERAL: Well-appearing, well-nourished and in no acute distress. HEAD: Atraumatic, normocephalic. EYES: Pupils equal round extraocular movements intact, conjunctiva are normal. ENT: Nares patent NECK: Normal range of motion LUNGS: No respiratory distress Abdomen: Abdomen soft, mild tenderness bilaterally to the lower quadrants as well as bilateral lumbar paraspinous region. Musculoskeletal: Normal range of motion NEUROLOGICAL: Normal speech, normal gait. PSYCH: Normal mood, normal affect. SKIN: Warm, Dry, normal turgor, no rashes or lesions noted. - INFECTION CONTROL TRAVEL OUTSIDE OF THE [place] IN LAST 30 DAYS: No Course - Re-evaluation Re-evalutation: Patient does not appear toxic, he has orders from Dr. Connelly for direct admission. There are no beds available in the tower, he will be held in the ED. [place] entering all of his orders at this time. - Vital Signs Vital signs: Temp Pulse Resp BP Pulse Ox 97.9 F 82 16 133/64 H 98 07/12/19 12:03 07/12/19 12:03 07/12/19 12:03 07/12/19 12:03 07/12/19 12:03 Discharge - Discharge Clinical Impression: Chills Fever Qualifiers: Fever type: unspecified Qualified Code(s): R50.9 - Fever, unspecified Leukocytosis Qualifiers: Leukocytosis type: unspecified Qualified Code(s): D72.829 - Elevated white blood cell count, unspecified Condition: Stable Disposition: ADMITTED INPATIENT Admitting Provider: [facility] Unit Admitted: Telemetry Referrals: MAXX CONNELLY MD [Primary Care Provider] - Follow up as needed
[2019-07-12] MEDS ORDERED: ACETAMINOPHEN 325 MG TABLET PO PRN (14:29)
[2019-07-12] MEDS ORDERED: MORPHINE SULFATE 10 MG/ML INJ IV PRN (14:31)
--- NOTE | 2019-07-12 14:37 | RADIOLOGY REPORT (SQ) ---
EXAM DESCRIPTION: CHEST 2 VIEWS COMPLETED DATE/TIME: 07/12/2019 2:23 pm REASON FOR STUDY: cad COMPARISON: 03/02/2019 EXAM PARAMETERS: NUMBER OF VIEWS: two views TECHNIQUE: Digital Frontal and Lateral radiographic views of the chest acquired. RADIATION DOSE: NA LIMITATIONS: none FINDINGS: LUNGS AND PLEURA: No opacities, masses or pneumothorax. No pleural effusion. MEDIASTINUM AND HILAR STRUCTURES: No masses or contour abnormalities. HEART AND VASCULAR STRUCTURES: Heart normal size. No evidence for failure. BONES: No acute findings. HARDWARE: Sternotomy wires are in place. OTHER: No other significant finding. IMPRESSION: NO ACUTE RADIOGRAPHIC FINDING IN THE CHEST. TECHNICAL DOCUMENTATION: JOB ID: [id number]- All Rights Reserved Reading location - IP/workstation name: [email or web address]
[2019-07-12 15:23] LABS: ABSOLUTE BASOPHILS # (AUTO) 0.1 10^3/uL (0.0-0.2); ABSOLUTE EOSINOPHILS # (AUTO) 0.1 10^3/uL (0.0-0.6); ABSOLUTE LYMPHOCYTES (AUTO) 4.4 10^3/uL (0.5-4.7); ABSOLUTE MONOCYTES (AUTO) 1.6 10^3/uL (0.1-1.4); ABSOLUTE NEUT (AUTO) 9.4 10^3/uL (1.7-8.2); BASOPHILS % (AUTO) 0.3 % (0-2); EOSINOPHILS % (AUTO) 0.5 % (0-6); HEMATOCRIT 40.4 % (37.9-51.0); HEMOGLOBIN 13.5 g/dL (13.5-17.0); LYMPHOCYTES % (AUTO) 28.2 % (13-45); MEAN CORPUSCULAR HEMOGLOBIN 30.5 pg (27.0-33.4); MEAN CORPUSCULAR HGB CONC 33.6 g/dL (32.0-36.0); MEAN CORPUSCULAR VOLUME 91 fl (80-97); MONOCYTES % (AUTO) 10.3 % (3-13); PLATELET COUNT 219 10^3/uL (150-450); RED BLOOD COUNT 4.44 10^6/uL (4.35-5.55); RED CELL DISTRIBUTION WIDTH 14.6 % (11.5-14.0); SEGMENTED NEUTROPHILS % (AUTO) 60.7 % (42-78); TOTAL CELLS COUNTED % (AUTO) 100 %; WHITE BLOOD COUNT 15.6 10^3/uL (4.0-10.5)
[2019-07-12 15:28] LABS: APPEARANCE,URINE SLIGHTLY-CLOUDY; BILIRUBIN,URINE NEGATIVE (NEGATIVE); COLOR,URINE YELLOW; GLUCOSE, URINE NEGATIVE (NEGATIVE); KETONES,URINE NEGATIVE (NEGATIVE); PROTEIN,URINE 100 mg/dL (NEGATIVE); URINE SPECIFIC GRAVITY 1.018; UROBILINOGEN,URINE NEGATIVE mg/dL (<2.0)
[2019-07-12 15:29] LABS: ALBUMIN 4.6 g/dL (3.5-5.0); ALKALINE PHOSPHATASE 63 U/L (38-126); ANION GAP 11 (5-19); ASPARTATE AMINO TRANSFERASE 47 U/L (17-59); BILIRUBIN,TOTAL 1.1 mg/dL (0.2-1.3); BLOOD UREA NITROGEN 22 mg/dL (7-20); CALCIUM 10.1 mg/dL (8.4-10.2); CARBON DIOXIDE 31 mmol/L (22-30); CHLORIDE 97 mmol/L (98-107); GLUCOSE 118 mg/dL (75-110); POTASSIUM 4.6 mmol/L (3.6-5.0); TOTAL PROTEIN 8.1 g/dL (6.3-8.2)
[2019-07-12] MEDS ORDERED: PIPERACILLIN/TAZOBACTAM 3.375 GM VIAL IV ONE (15:38)
[2019-07-12] MEDS: NORMAL SALINE 1000 ML 1,000 ML IV PRN (15:56)
[2019-07-12] MEDS: PIPERACILLIN SODIUM/TAZOBACTAM 3.375 GM in NORMAL SALINE 100 ML IV SCH ×2 (15:57→21:52)
--- NOTE | 2019-07-12 20:14 | PDOC H&P ---
History of Present Illness Admission Date/PCP: 07/12/19 14:14 MAXX MIKE Patient complains of: Fever, Chills, Abdominal pain History of Present Illness: DEBORA EISENBERG is a 69 year old male patient known to my practice who presented to the [facility] earlier today as walk-in with 2 days history of fever and chills associated abdominal pain and nausea. Patient reported associated increase urinary frequency and episodes of dizziness. Dizziness was mostly associated with change in position from sitting to standing and associated with loss of stability. He avoided driving due to his dizziness. He reported associated headache, sinus congestion, back pain in his waist region that worsen with deep breathing. His initial evaluation in the office revealed significant leukocytosis with left shift and upper abdominal region tenderness, particularly RUQ with positive Estevez sign in the office. In view of his presentation there was concern for possible gallbladder disease process. He was advised hospitalization. due to nonavailability of inpatient bed, patient was directed to the ED with treatment orders. His medical morbidities are as listed below. Past Medical History Cardiac Medical History: Reports: Coronary Artery Disease, Myocardial Infarction, Hyperlipidema, Hypertension Endocrine Medical History: Reports: Diabetes Mellitus Type 2 Social History Smoking Status: Former Smoker Frequency of Alcohol Use: None Hx Recreational Drug Use: No Drugs: None Hx Prescription Drug Abuse: No - Advance Directive Resuscitation Status: Full Code Family History Family History: Reviewed & Not Pertinent Parental Family History Reviewed: Yes Children Family History Reviewed: Yes Sibling(s) Family History Reviewed.: Yes Medication/Allergy Home Medications: Acetaminophen 1,000 mg PO Q6HP PRN 07/12/19 Allopurinol [Zyloprim 100 mg Tablet] 100 mg PO DAILY 07/12/19 Aspirin [Adult Low Dose Aspirin EC] 81 mg PO DAILY 07/12/19 Ezetimibe/Simvastatin [Ezetimibe-Simvastatin 10-40 mg] 1 tab PO DAILY 07/12/19 Glucosam/Chond/Collagen/Hyalur [Glucosamine Chondroitin Cap] 1 tab PO DAILY 07/12/19 Glyburide/Metformin HCl [Glyburide-Metformin 5-500 mg] 1 tab PO BID 07/12/19 Loratadine [Claritin 10 mg Tablet] 10 mg PO DAILY 07/12/19 Losartan/Hydrochlorothiazide [Losartan-Hctz 50-12.5 mg Tab] 1 tab PO DAILY 07/12/19 Multivit-Min/FA/Lycopen/Lutein [Centrum Silver Men Tablet] 1 tab PO DAILY 07/12/19 [place]-3 Acid Ethyl Esters [Lovaza 1 gm Capsule] 2 gm PO BID 07/12/19 Omeprazole 40 mg PO Q6AM 07/12/19 Allergies/Adverse Reactions: No Known Allergies Allergy (Unverified 09/24/12 13:16) Review of Systems Constitutional: PRESENT: chills, fever(s), headache(s) Eyes: ABSENT: visual disturbances Ears: ABSENT: hearing changes Nose, Mouth, and Throat: PRESENT: headache(s) Cardiovascular: ABSENT: chest pain, dyspnea on exertion, edema, orthropnea, palpitations Respiratory: ABSENT: cough, hemoptysis Gastrointestinal: PRESENT: abdominal pain, diarrhea, nausea, vomiting Genitourinary: PRESENT: other - urinary frequency Musculoskeletal: ABSENT: joint swelling Integumentary: ABSENT: rash, wounds Neurological: ABSENT: abnormal gait, abnormal speech, confusion, dizziness, focal weakness, syncope Psychiatric: ABSENT: anxiety, depression, homidical ideation, suicidal ideation Endocrine: ABSENT: cold intolerance, heat intolerance, menstrual abnormalities, polydipsia, polyuria Hematologic/Lymphatic: ABSENT: easy bleeding, easy bruising, lymphadenopathy Allergic/Immunologic: ABSENT: seasonal rhinorrhea Physical Exam Vital Signs: Temp Pulse Resp BP Pulse Ox 98.9 F 81 18 136/89 H 97 07/12/19 18:35 07/12/19 18:35 07/12/19 18:35 07/12/19 18:35 07/12/19 18:35 Intake & Output 07/11/19 07/12/19 07/13/19 06:59 06:59 06:59 Intake Total 100 Balance 100 Weight 71.8 kg General appearance: PRESENT: mild distress - due Head exam: PRESENT: atraumatic, normocephalic Eye exam: PRESENT: conjunctiva pink, EOMI, PERRLA. ABSENT: scleral icterus Ear exam: PRESENT: normal external ear exam Mouth exam: PRESENT: moist Throat exam: ABSENT: post pharyngeal erythema, tonsillar erythema, tonsillar exudate Neck exam: PRESENT: full ROM. ABSENT: carotid bruit, JVD, lymphadenopathy, thyromegaly Respiratory exam: PRESENT: clear to auscultation janes Cardiovascular exam: PRESENT: RRR. ABSENT: diastolic murmur, rubs, systolic murmur Vascular exam: ABSENT: pallor GI/Abdominal exam: PRESENT: guarding, Estevez's sign, normal bowel sounds, soft, tenderness. ABSENT: distended, organolmegaly, rebound Rectal exam: PRESENT: deferred Extremities exam: ABSENT: pedal edema Musculoskeletal exam: PRESENT: normal inspection Neurological exam: PRESENT: alert, awake, oriented to person, oriented to place, oriented to time, oriented to situation, CN II-XII grossly intact. ABSENT: motor sensory deficit Psychiatric exam: PRESENT: appropriate affect, normal mood. ABSENT: homicidal ideation, suicidal ideation Skin exam: PRESENT: dry, intact, warm. ABSENT: cyanosis, rash Results Laboratory Results: 07/12/19 14:47 07/12/19 14:47 07/12/19 07/12/19 07/12/19 14:47 14:47 14:47 WBC 15.6 H RBC 4.44 Hgb 13.5 Hct 40.4 MCV 91 MCH 30.5 MCHC 33.6 RDW 14.6 H Plt Count 219 Seg Neutrophils % 60.7 Sodium 139.0 Potassium 4.6 Chloride 97 L Carbon Dioxide 31 H Anion Gap 11 BUN 22 H Creatinine 0.87 Est GFR ( Amer) > 60 Glucose 118 H Calcium 10.1 Total Bilirubin 1.1 AST 47 Alkaline Phosphatase 63 Total Protein 8.1 Albumin 4.6 Urine Color YELLOW Urine Appearance SLIGHTLY-CLOUDY Urine pH 6.0 Ur Specific [place] 1.018 Urine Protein 100 H Urine Glucose (UA) NEGATIVE Urine Ketones NEGATIVE Urine Blood LARGE H Urine RBC (Auto) >182 Impressions: Chest X-Ray 07/12/19 14:08 IMPRESSION: NO ACUTE RADIOGRAPHIC FINDING IN THE CHEST. Assessment & Plan - Diagnosis (1) Fever Qualifiers: Fever type: unspecified Qualified Code(s): R50.9 - Fever, unspecified Is this a current diagnosis for this admission?: Yes Plan: See admitting physician orders for details about care plan. (2) Chills Is this a current diagnosis for this admission?: Yes Plan: See admitting physician orders for details about care plan. (3) Urinary frequency Is this a current diagnosis for this admission?: Yes Plan: See admitting physician orders for details about care plan. (4) Leukocytosis Qualifiers: Leukocytosis type: unspecified Qualified Code(s): D72.829 - Elevated white blood cell count, unspecified Is this a current diagnosis for this admission?: Yes Plan: See admitting physician orders for details about care plan. (5) Diabetes mellitus type 2 in nonobese Is this a current diagnosis for this admission?: Yes Plan: See admitting physician orders for details about care plan. (6) HTN (hypertension) Qualifiers: Hypertension type: essential hypertension Qualified Code(s): I10 - Essential (primary) hypertension Is this a current diagnosis for this admission?: Yes Plan: See admitting physician orders for details about care plan. (7) CAD (coronary atherosclerotic disease) Qualifiers: Coronary Disease-Associated Artery/Lesion type: [place] artery [place] vs. transplanted heart: [place] heart Associated angina: without angina Qualified Code(s): I25.10 - Atherosclerotic heart disease of [place] coronary artery without angina pectoris Is this a current diagnosis for this admission?: Yes Plan: See admitting physician orders for details about care plan. (8) H/O heart bypass surgery Is this a current diagnosis for this admission?: Yes Plan: See admitting physician orders for details about care plan. (9) HLD (hyperlipidemia) Qualifiers: Hyperlipidemia type: unspecified Qualified Code(s): E78.5 - Hyperlipidemia, unspecified Is this a current diagnosis for this admission?: Yes Plan: See admitting physician orders for details about care plan. (10) Chronic gouty arthritis Is this a current diagnosis for this admission?: Yes Plan: See admitting physician orders for details about care plan. (11) Osteoarthritis involving multiple joints on both sides of body Is this a current diagnosis for this admission?: Yes Plan: See admitting physician orders for details about care plan. - Time Time Spent: Greater than 70 Minutes Medications reviewed and adjusted accordingly: Yes Anticipated discharge: Home Within: Other - Inpatient Certification Based on my medical assessment, after consideration of the patient's comorbidities, presenting symptoms, or acuity I expect that the services needed warrant INPATIENT care.: Yes I certify that my determination is in accordance with my understanding of Medicare's requirements for reasonable and necessary INPATIENT services [42 CFR 412.3e].: Yes Medical Necessity: Significant Comorbidiites Make Outpatient Treatment Too Risky, Need Close Monitoring Due to Risk of Patient Decompensation, Need For IV Fluids, Need For Continuous Telemetry Monitoring, Need for IV Antibiotics, Risk of Complication if Not Cared For in Hospital, Risk of Diagnosis Which Will Require Inpatient Eval/Care/Monitoring Post Hospital Care: D/C Enterprise Application Administrator Documentation - Plan Summary Plan Summary: See admitting physician orders for details about care plan.
[2019-07-12] MEDS ORDERED: DEXTROSE 40% GEL 15 GM TUBE PO PRN ×2 (20:15)
[2019-07-12] MEDS ORDERED: DEXTROSE 50%-WATER 25 GM/50 ML DISP.SYRIN IV PRN ×2 (20:15)
[2019-07-12] MEDS ORDERED: GLUCAGON,HUMAN RECOMB 1 MG INJ IM PRN (20:15)
[2019-07-12] MEDS: SIMVASTATIN 40 MG TABLET PO SCH (21:52)
[2019-07-12] MEDS: EZETIMIBE 10 MG TABLET PO SCH (21:53)
[2019-07-12] MEDS: INSULIN LISPRO 100 UNIT/ML 3 ML VIAL SUBCUT SCH (21:53)
--- NOTE | 2019-07-12 21:58 | RADIOLOGY REPORT (SQ) ---
EXAM DESCRIPTION: US ABDOMEN COMPLETED DATE/TME: 07/12/2019 00:00 CLINICAL HISTORY: 69 years, Male, liver disease COMPARISON: None. TECHNIQUE: LIMITATIONS: None. FINDINGS: There is a 3.7 cm complex, solid-appearing mass in the mid to lower right kidney. There is a somewhat rounded echogenic structure in the lower pole of the right kidney. I am uncertain if this represents a lesion with peripheral calcification or possibly a stent. The liver is hyperechogenic, compatible with fatty infiltration. There are small areas of fatty sparing adjacent to the gallbladder. No gallstones. No evidence of biliary tree dilatation. The robotics technologist reported a negative sonographic Estevez sign. The pancreatic head and body are grossly unremarkable. The pancreatic tail was obscured by bowel gas. The spleen is unremarkable. There are no focal masses within the left kidney. The left kidney has a lobular contour. No hydronephrosis. IMPRESSION: Right renal mass suspicious for renal cell carcinoma. A CT scan of the kidneys both prior to and following the administration of intravenous contrast, might prove helpful for further evaluation. Calcified lesion versus a stent in the lower pole of the right kidney. Fatty liver. copyright 2010 [employer]- All Rights Reserved
[2019-07-12 23:39] LABS: ALBUMIN 3.9 g/dL (3.5-5.0); ALKALINE PHOSPHATASE 70 U/L (38-126); ANION GAP 12 (5-19); ASPARTATE AMINO TRANSFERASE 80 U/L (17-59); BILIRUBIN,DIRECT 0.3 mg/dL (0.0-0.4); BILIRUBIN,TOTAL 0.8 mg/dL (0.2-1.3); BLOOD UREA NITROGEN 24 mg/dL (7-20); CALCIUM 8.9 mg/dL (8.4-10.2); CARBON DIOXIDE 27 mmol/L (22-30); CHLORIDE 98 mmol/L (98-107); GLUCOSE 173 mg/dL (75-110); POTASSIUM 3.8 mmol/L (3.6-5.0)
[2019-07-13] MEDS: NORMAL SALINE 1000 ML 1,000 ML IV PRN ×2 (03:20→20:02)
[2019-07-13] MEDS: PIPERACILLIN SODIUM/TAZOBACTAM 3.375 GM in NORMAL SALINE 100 ML IV SCH ×4 (03:21→22:20)
[2019-07-13 05:33] LABS: ABSOLUTE EOSINOPHILS # (AUTO) 0.1 10^3/uL (0.0-0.6); ABSOLUTE LYMPHOCYTES (AUTO) 2.5 10^3/uL (0.5-4.7); ABSOLUTE NEUT (AUTO) 6.6 10^3/uL (1.7-8.2); BASOPHILS % (AUTO) 0.5 % (0-2); EOSINOPHILS % (AUTO) 1.2 % (0-6); HEMATOCRIT 36.3 % (37.9-51.0); HEMOGLOBIN 12.4 g/dL (13.5-17.0); LYMPHOCYTES % (AUTO) 24.2 % (13-45); MEAN CORPUSCULAR HEMOGLOBIN 31.1 pg (27.0-33.4); MEAN CORPUSCULAR HGB CONC 34.2 g/dL (32.0-36.0); MEAN CORPUSCULAR VOLUME 91 fl (80-97); MONOCYTES % (AUTO) 10.1 % (3-13); PLATELET COUNT 180 10^3/uL (150-450); RED BLOOD COUNT 3.99 10^6/uL (4.35-5.55); RED CELL DISTRIBUTION WIDTH 14.3 % (11.5-14.0); TOTAL CELLS COUNTED % (AUTO) 100 %; WHITE BLOOD COUNT 10.4 10^3/uL (4.0-10.5)
[2019-07-13 06:05] LABS: ALBUMIN 3.6 g/dL (3.5-5.0); ALKALINE PHOSPHATASE 73 U/L (38-126); ANION GAP 11 (5-19); ASPARTATE AMINO TRANSFERASE 80 U/L (17-59); BILIRUBIN,DIRECT 0.1 mg/dL (0.0-0.4); BILIRUBIN,TOTAL 0.8 mg/dL (0.2-1.3); BLOOD UREA NITROGEN 20 mg/dL (7-20); CALCIUM 8.8 mg/dL (8.4-10.2); CARBON DIOXIDE 25 mmol/L (22-30); CHLORIDE 102 mmol/L (98-107); GLUCOSE 161 mg/dL (75-110); POTASSIUM 4.1 mmol/L (3.6-5.0); TOTAL PROTEIN 6.6 g/dL (6.3-8.2)
[2019-07-13] MEDS: INSULIN LISPRO 100 UNIT/ML 3 ML VIAL SUBCUT SCH ×4 (08:02→22:11)
[2019-07-13] MEDS ORDERED: (PENDING PHARMACY ID) (Losartan/Hydrochlorothiazide [Losartan-Hctz 50-12.5 Mg Tab] 1 TAB) PO SCH (10:00)
[2019-07-13] MEDS ORDERED: SIMVASTATIN PO SCH (10:00)
[2019-07-13] MEDS ORDERED: (PENDING PHARMACY ID) (Multivit-Min/Fa/Lycopen/Lutein [Centrum Silver Men Tablet] 1 TAB) PO SCH (10:00)
[2019-07-13] MEDS ORDERED: EZETIMIBE PO SCH (10:00)
[2019-07-13] MEDS ORDERED: (PENDING PHARMACY ID) (Glyburide/Metformin Hcl [Glyburide-Metformin 5-500 Mg] 1 TAB) PO SCH (10:00)
[2019-07-13] MEDS: METFORMIN HCL 500 MG TABLET PO SCH ×2 (11:02→17:19)
[2019-07-13] MEDS: PANTOPRAZOLE SODIUM 40 MG TABLET.DR PO SCH (11:02)
[2019-07-13] MEDS: MULTIVITAMIN TABLET PO SCH (11:02)
[2019-07-13] MEDS: LORATADINE 10 MG TABLET PO SCH (11:02)
[2019-07-13] MEDS: GLYBURIDE 5 MG TABLET PO SCH (11:03)
[2019-07-13] MEDS: LOSARTAN POTASSIUM 50 MG TABLET PO SCH (11:03)
[2019-07-13] MEDS: ALLOPURINOL 100 MG TABLET PO SCH (11:05)
[2019-07-13] MEDS: ASPIRIN 81 MG TABLET, ENT COATED PO SCH (11:05)
[2019-07-13] MEDS: OMEGA-3 ACID ETHYL ESTERS 1 GM CAPSULE PO SCH ×2 (11:05→17:19)
[2019-07-13] MEDS: ENOXAPARIN SODIUM INJ 40 MG/0.4 ML DISP.SYRIN SUBCUT SCH (11:09)
[2019-07-13] MEDS: HYDROCHLOROTHIAZIDE 12.5 MG TABLET PO SCH (11:53)
--- NOTE | 2019-07-13 18:58 | PDOC PROGRESS REPORT ---
Subjective Progress Note for:: 07/13/19 Subjective:: No fever or chills. No nausea, vomiting, or abdominal pain. No chest pain or difficulty with breathing. Remain on IV fluid and antibiotic support. Reason For Visit: CAD,HTN Physical Exam Vital Signs: Temp Pulse Resp BP Pulse Ox 98.3 F 84 18 147/83 H 97 07/13/19 15:31 07/13/19 15:31 07/13/19 15:31 07/13/19 15:31 07/13/19 15:31 Intake & Output 07/12/19 07/13/19 07/14/19 06:59 06:59 06:59 Intake Total 1540 1040 Output Total 600 Balance 940 1040 Weight 71.8 kg General appearance: PRESENT: no acute distress, well-developed, well-nourished Head exam: PRESENT: atraumatic, normocephalic Eye exam: PRESENT: conjunctiva pink. ABSENT: scleral icterus Ear exam: PRESENT: normal external ear exam Mouth exam: PRESENT: moist Respiratory exam: PRESENT: clear to auscultation janes Cardiovascular exam: PRESENT: RRR. ABSENT: diastolic murmur, rubs, systolic m urmur Vascular exam: ABSENT: pallor GI/Abdominal exam: PRESENT: normal bowel sounds, soft. ABSENT: distended, guarding, mass, organolmegaly, rebound, tenderness Extremities exam: ABSENT: pedal edema Neurological exam: PRESENT: alert, awake, oriented to person, oriented to place, oriented to time, oriented to situation, CN II-XII grossly intact. ABSENT: motor sensory deficit Psychiatric exam: PRESENT: appropriate affect, normal mood. ABSENT: homicidal ideation, suicidal ideation Skin exam: PRESENT: dry, warm Results Laboratory Results: 07/13/19 05:06 07/13/19 05:06 07/12/19 07/13/19 07/13/19 22:55 05:06 05:06 WBC 10.4 RBC 3.99 L Hgb 12.4 L Hct 36.3 L MCV 91 MCH 31.1 MCHC 34.2 RDW 14.3 H Plt Count 180 Seg Neutrophils % 64.0 Sodium 137.0 138.2 Potassium 3.8 4.1 Chloride 98 102 Carbon Dioxide 27 25 Anion Gap 12 11 BUN 24 H 20 Creatinine 0.89 0.75 Est GFR ( Amer) > 60 > 60 Glucose 173 H 161 H Calcium 8.9 8.8 Total Bilirubin 0.8 0.8 AST 80 H 80 H Alkaline Phosphatase 70 73 Total Protein 7.0 6.6 Albumin 3.9 3.6 Impressions: Abdomen Ultrasound 07/12/19 00:00 IMPRESSION: Right renal mass suspicious for renal cell carcinoma. A CT scan of the kidneys both prior to and following the administration of intravenous contrast, might prove helpful for further evaluation. Calcified lesion versus a stent in the lower pole of the right kidney. Fatty liver. copyright 2010 [employer]- All Rights Reserved Chest X-Ray 07/12/19 14:08 IMPRESSION: NO ACUTE RADIOGRAPHIC FINDING IN THE CHEST. Assessment & Plan - Diagnosis (1) Fever Qualifiers: Fever type: unspecified Qualified Code(s): R50.9 - Fever, unspecified Is this a current diagnosis for this admission?: Yes (2) Chills Is this a current diagnosis for this admission?: Yes (3) Urinary frequency Is this a current diagnosis for this admission?: Yes (4) Leukocytosis Qualifiers: Leukocytosis type: unspecified Qualified Code(s): D72.829 - Elevated white blood cell count, unspecified Is this a current diagnosis for this admission?: Yes (5) Diabetes mellitus type 2 in nonobese Is this a current diagnosis for this admission?: Yes (6) HTN (hypertension) Qualifiers: Hypertension type: essential hypertension Qualified Code(s): I10 - Essential (primary) hypertension Is this a current diagnosis for this admission?: Yes (7) CAD (coronary atherosclerotic disease) Qualifiers: Coronary Disease-Associated Artery/Lesion type: [place] artery [place] vs. transplanted heart: [place] heart Associated angina: without angina Qualified Code(s): I25.10 - Atherosclerotic heart disease of [place] coronary artery without angina pectoris Is this a current diagnosis for this admission?: Yes (8) H/O heart bypass surgery Is this a current diagnosis for this admission?: Yes (9) HLD (hyperlipidemia) Qualifiers: Hyperlipidemia type: unspecified Qualified Code(s): E78.5 - Hyperlipidemia, unspecified Is this a current diagnosis for this admission?: Yes (10) Chronic gouty arthritis Is this a current diagnosis for this admission?: Yes (11) Osteoarthritis involving multiple joints on both sides of body Is this a current diagnosis for this admission?: Yes (12) Right renal mass Is this a current diagnosis for this admission?: Yes Plan: see attending orders for care plan. I had extensive discussion with patient and family at bedside dueing my visit. He is in agreement with recommended care plan. - Time Time Spent with patient: 35 or more minutes Level of Care: IMCU Medications reviewed and adjusted accordingly: Yes Anticipated discharge: Home Within: Other - Inpatient Certification Based on my medical assessment, after consideration of the patient's comorbidities, presenting symptoms, or acuity I expect that the services needed warrant INPATIENT care.: Yes I certify that my determination is in accordance with my understanding of Medicare's requirements for reasonable and necessary INPATIENT services [42 CFR 412.3e].: Yes Medical Necessity: Significant Comorbidiites Make Outpatient Treatment Too Risky, Need Close Monitoring Due to Risk of Patient Decompensation, Need For IV Fluids, Need For Continuous Telemetry Monitoring, Need for IV Antibiotics, Risk of Complication if Not Cared For in Hospital, Risk of Diagnosis Which Will Require Inpatient Eval/Care/Monitoring Post Hospital Care: 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 Obtain CT scan kidney w&w/o contrast.
[2019-07-13] MEDS: SIMVASTATIN 40 MG TABLET PO SCH (22:19)
[2019-07-13] MEDS: EZETIMIBE 10 MG TABLET PO SCH (22:19)
[2019-07-14] MEDS: PIPERACILLIN SODIUM/TAZOBACTAM 3.375 GM in NORMAL SALINE 100 ML IV SCH ×4 (03:31→21:59)
[2019-07-14] MEDS: NORMAL SALINE 1000 ML 1,000 ML IV PRN ×2 (06:41→09:17)
[2019-07-14] MEDS: INSULIN LISPRO 100 UNIT/ML 3 ML VIAL SUBCUT SCH ×4 (08:06→21:59)
[2019-07-14] MEDS: GLYBURIDE 5 MG TABLET PO SCH (09:11)
[2019-07-14] MEDS: LORATADINE 10 MG TABLET PO SCH (09:11)
[2019-07-14] MEDS: HYDROCHLOROTHIAZIDE 12.5 MG TABLET PO SCH (09:12)
[2019-07-14] MEDS: ALLOPURINOL 100 MG TABLET PO SCH (09:13)
[2019-07-14] MEDS: ASPIRIN 81 MG TABLET, ENT COATED PO SCH (09:13)
[2019-07-14] MEDS: MULTIVITAMIN TABLET PO SCH (09:13)
[2019-07-14] MEDS: PANTOPRAZOLE SODIUM 40 MG TABLET.DR PO SCH (09:13)
[2019-07-14] MEDS: METFORMIN HCL 500 MG TABLET PO SCH (09:13)
[2019-07-14] MEDS: LOSARTAN POTASSIUM 50 MG TABLET PO SCH (09:14)
[2019-07-14] MEDS: ENOXAPARIN SODIUM INJ 40 MG/0.4 ML DISP.SYRIN SUBCUT SCH (09:15)
[2019-07-14] MEDS: OMEGA-3 ACID ETHYL ESTERS 1 GM CAPSULE PO SCH ×2 (09:15→17:20)
--- NOTE | 2019-07-14 20:40 | PDOC PROGRESS REPORT ---
Subjective Progress Note for:: 07/14/19 Subjective:: No fever or chills. No nausea, vomiting, or abdominal pain. No chest pain or difficulty with breathing. Remain on IV fluid and antibiotic support. Reason For Visit: Fever, chills, and abdominal pain Physical Exam Vital Signs: Temp Pulse Resp BP Pulse Ox 98.6 F 79 16 145/81 H 96 07/14/19 16:46 07/14/19 19:00 07/14/19 16:46 07/14/19 16:46 07/14/19 16:46 Intake & Output 07/13/19 07/14/19 07/15/19 06:59 06:59 06:59 Intake Total 1540 3720 1008 Output Total 600 640 700 Balance 940 3080 308 Weight 71.8 kg 75.4 kg Physical Exam: General appearance: PRESENT: no acute distress, well-developed, well-nourished Head exam: PRESENT: atraumatic, normocephalic Eye exam: PRESENT: conjunctiva pink. ABSENT: pallor, scleral icterus Ear exam: PRESENT: normal external ear exam Mouth exam: PRESENT: moist Respiratory exam: PRESENT: clear to auscultation janes Cardiovascular exam: PRESENT: RRR. ABSENT: diastolic murmur, rubs, systolic murmur Vascular exam: ABSENT: pallor GI/Abdominal exam: PRESENT: normal bowel sounds, soft. ABSENT: distended, guarding, mass, organomegaly, rebound, tenderness Extremities exam: ABSENT: pedal edema Neurological exam: PRESENT: alert, awake, oriented to person, oriented to place, oriented to time, oriented to situation, CN II-XII grossly intact. ABSENT: motor sensory deficit Psychiatric exam: PRESENT: appropriate affect, normal mood. ABSENT: homicidal ideation, suicidal ideation Skin exam: PRESENT: dry, warm Results Laboratory Results: 07/13/19 05:06 07/13/19 05:06 07/12/19 14:47 Clean Catch Midstream Urine Culture - Final 4,000 col/ml Impressions: Abdomen Ultrasound 07/12/19 00:00 IMPRESSION: Right renal mass suspicious for renal cell carcinoma. A CT scan of the kidneys both prior to and following the administration of intravenous contrast, might prove helpful for further evaluation. Calcified lesion versus a stent in the lower pole of the right kidney. Fatty liver. copyright 2010 [employer]- All Rights Reserved Chest X-Ray 07/12/19 14:08 IMPRESSION: NO ACUTE RADIOGRAPHIC FINDING IN THE CHEST. Assessment & Plan - Diagnosis (1) Fever Qualifiers: Fever type: unspecified Qualified Code(s): R50.9 - Fever, unspecified Is this a current diagnosis for this admission?: Yes (2) Chills Is this a current diagnosis for this admission?: Yes (3) Urinary frequency Is this a current diagnosis for this admission?: Yes (4) Leukocytosis Qualifiers: Leukocytosis type: unspecified Qualified Code(s): D72.829 - Elevated white blood cell count, unspecified Is this a current diagnosis for this admission?: Yes (5) Diabetes mellitus type 2 in nonobese Is this a current diagnosis for this admission?: Yes (6) HTN (hypertension) Qualifiers: Hypertension type: essential hypertension Qualified Code(s): I10 - Essential (primary) hypertension Is this a current diagnosis for this admission?: Yes (7) CAD (coronary atherosclerotic disease) Qualifiers: Coronary Disease-Associated Artery/Lesion type: [place] artery [place] vs. transplanted heart: [place] heart Associated angina: without angina Qualified Code(s): I25.10 - Atherosclerotic heart disease of [place] coronary artery without angina pectoris Is this a current diagnosis for this admission?: Yes (8) H/O heart bypass surgery Is this a current diagnosis for this admission?: Yes (9) HLD (hyperlipidemia) Qualifiers: Hyperlipidemia type: unspecified Qualified Code(s): E78.5 - Hyperlipidemia, unspecified Is this a current diagnosis for this admission?: Yes (10) Chronic gouty arthritis Is this a current diagnosis for this admission?: Yes (11) Osteoarthritis involving multiple joints on both sides of body Is this a current diagnosis for this admission?: Yes (12) Right renal mass Is this a current diagnosis for this admission?: Yes - Time Time Spent with patient: 25-34 minutes Level of Care: IMCU Medications reviewed and adjusted accordingly: Yes Anticipated discharge: Home Within: Other - Inpatient Certification Based on my medical assessment, after consideration of the patient's comorbidities, presenting symptoms, or acuity I expect that the services needed warrant INPATIENT care.: Yes I certify that my determination is in accordance with my understanding of Medicare's requirements for reasonable and necessary INPATIENT services [42 CFR 412.3e].: Yes Medical Necessity: Significant Comorbidiites Make Outpatient Treatment Too [place], Need Close Monitoring Due to Risk of Patient Decompensation, Need For IV Fluids, Need For Continuous Telemetry Monitoring, Need for IV Antibiotics, Risk of Complication if Not Cared For in Hospital, Risk of Diagnosis Which Will Require Inpatient Eval/Care/Monitoring Post Hospital Care: D/C [employer] Maker Documentation - Plan Summary Plan Summary: Continue current medication management. Follow up official CT scan abdomen and pelvis report. There is 48 hours policy for reading of routine CT scan at this facility. I reviewed the film with patient and spouse at bedside.
[2019-07-14] MEDS: SIMVASTATIN 40 MG TABLET PO SCH (21:59)
[2019-07-14] MEDS: EZETIMIBE 10 MG TABLET PO SCH (22:02)
[2019-07-15] MEDS: PIPERACILLIN SODIUM/TAZOBACTAM 3.375 GM in NORMAL SALINE 100 ML IV SCH ×4 (02:35→21:18)
--- NOTE | 2019-07-15 03:20 | RADIOLOGY REPORT (SQ) ---
EXAM DESCRIPTION: CT ABDOMEN PELVIS WITHOUT THEN WITH IV CONTRAST COMPLETED DATE/TME: 07/14/2019 08:00 CLINICAL HISTORY: 69 years, Male, Right renal mass COMPARISON: None. TECHNIQUE: Images stored on PACS. All CT scanners at this facility use dose modulation, iterative reconstruction, and/or weight based dosing when appropriate to reduce radiation dose to as low as reasonably achievable (ALARA). [facility]: Dose Right [facility]: CareDose [facility]: Dose Right [facility]: Teradose 4D [facility]: Smart Technologies LIMITATIONS: None. FINDINGS: Multiphasic imaging. Lung bases are grossly clear. Mild chronic change. The heart is prominent with coronary calcification. The liver is homogeneous. Mild fatty infiltration. No discrete lesion is seen. The gallbladder is nondistended without inflammatory change. The pancreas spleen and adrenals are unremarkable. The left kidney appears normal. A large solid enhancing mass lesion containing coarse calcifications identified mid to lower pole of the right kidney anteriorly measuring 5.3 x 4.2 cm. The bowel is nonobstructed. Moderate hard stool within the colon distally particularly in the rectum. The aorta is calcified but nonaneurysmal. No free air. No free fluid. Pelvic contents are unremarkable. Visualized bones demonstrate presumed bone [place] left hemisacrum. Osteoarthritis. IMPRESSION: Solid mass lesion of the right kidney representing renal cell carcinoma until proven otherwise. No obvious metastatic disease. Indeterminate sclerotic lesion left hemisacrum, likely bone island. Incidental note made of fatty liver TECHNICAL DOCUMENTATION: Quality ID # 436: Final reports with documentation of one or more dose reduction techniques (e.g., Automated exposure control, adjustment of the mA and/or kV according to patient size, use of iterative reconstruction technique) copyright 2011 [employer]- All Rights Reserved
[2019-07-15] MEDS: INSULIN LISPRO 100 UNIT/ML 3 ML VIAL SUBCUT SCH ×4 (08:26→22:25)
[2019-07-15] MEDS: MULTIVITAMIN TABLET PO SCH (09:09)
[2019-07-15] MEDS: HYDROCHLOROTHIAZIDE 12.5 MG TABLET PO SCH (09:09)
[2019-07-15] MEDS: LOSARTAN POTASSIUM 50 MG TABLET PO SCH (09:10)
[2019-07-15] MEDS: ENOXAPARIN SODIUM INJ 40 MG/0.4 ML DISP.SYRIN SUBCUT SCH (09:10)
[2019-07-15] MEDS: GLYBURIDE 5 MG TABLET PO SCH (09:11)
[2019-07-15] MEDS: OMEGA-3 ACID ETHYL ESTERS 1 GM CAPSULE PO SCH ×2 (09:11→17:39)
[2019-07-15] MEDS: ALLOPURINOL 100 MG TABLET PO SCH (09:11)
[2019-07-15] MEDS: LORATADINE 10 MG TABLET PO SCH (09:12)
[2019-07-15] MEDS: ASPIRIN 81 MG TABLET, ENT COATED PO SCH (09:12)
[2019-07-15] MEDS: PANTOPRAZOLE SODIUM 40 MG TABLET.DR PO SCH (09:12)
[2019-07-15] MEDS: NORMAL SALINE 1000 ML 1,000 ML IV PRN (15:16)
--- NOTE | 2019-07-15 18:39 | PDOC PROGRESS REPORT ---
Subjective Progress Note for:: 07/15/19 Subjective:: patient denied any fever or chills. No nausea, vomiting, or abdominal pain. No chest pain or difficulty with breathing. Remain on IV Zosyn coverage and fluid support. Reason For Visit: CAD,HTN Physical Exam Vital Signs: Temp Pulse Resp BP Pulse Ox 99.1 F 69 20 144/75 H 95 07/15/19 03:54 07/15/19 07:00 07/15/19 03:54 07/15/19 03:54 07/15/19 03:54 Intake & Output 07/14/19 07/15/19 07/16/19 06:59 06:59 06:59 Intake Total 3720 1508 Output Total 640 1625 Balance 3080 -117 Weight 75.4 kg 74.3 kg Physical Exam: General appearance: PRESENT: no acute distress, well-developed, well-nourished Head exam: PRESENT: atraumatic, normocephalic Eye exam: PRESENT: conjunctiva pink. ABSENT: pallor, scleral icterus Ear exam: PRESENT: normal external ear exam Mouth exam: PRESENT: moist Respiratory exam: PRESENT: clear to auscultation janes Cardiovascular exam: PRESENT: RRR. ABSENT: diastolic murmur, rubs, systolic murmur GI/Abdominal exam: PRESENT: normal bowel sounds, soft. ABSENT: distended, guarding, mass, organomegaly, rebound, tenderness Extremities exam: ABSENT: pedal edema Neurological exam: PRESENT: alert, awake, oriented to person, oriented to place, oriented to time, oriented to situation, CN II-XII grossly intact. ABSENT: motor sensory deficit Psychiatric exam: PRESENT: appropriate affect, normal mood. ABSENT: homicidal ideation, suicidal ideation Skin exam: PRESENT: dry, warm Results Laboratory Results: 07/13/19 05:06 07/13/19 05:06 07/12/19 14:47 Clean Catch Midstream Urine Culture - Final 4,000 col/ml Impressions: Abdomen Ultrasound 07/12/19 00:00 IMPRESSION: Right renal mass suspicious for renal cell carcinoma. A CT scan of the kidneys both prior to and following the administration of intravenous contrast, might prove helpful for further evaluation. Calcified lesion versus a stent in the lower pole of the right kidney. Fatty liver. copyright 2011 [employer]- All Rights Reserved Chest X-Ray 07/12/19 14:08 IMPRESSION: NO ACUTE RADIOGRAPHIC FINDING IN THE CHEST. Abdomen/Pelvis CT 07/14/19 08:00 IMPRESSION: Solid mass lesion of the right kidney representing renal cell carcinoma until proven otherwise. No obvious metastatic disease. Indeterminate sclerotic lesion left hemisacrum, likely bone [place]. Incidental note made of fatty liver TECHNICAL DOCUMENTATION: Quality ID # 436: Final reports with documentation of one or more dose reduction techniques (e.g., Automated exposure control, adjustment of the mA and/or kV according to patient size, use of iterative reconstruction technique) copyright 2011 [employer]- All Rights Reserved Assessment & Plan - Diagnosis (1) Fever Qualifiers: Fever type: unspecified Qualified Code(s): R50.9 - Fever, unspecified Is this a current diagnosis for this admission?: Yes (2) Chills Is this a current diagnosis for this admission?: Yes (3) Urinary frequency Is this a current diagnosis for this admission?: Yes (4) Leukocytosis Qualifiers: Leukocytosis type: unspecified Qualified Code(s): D72.829 - Elevated white blood cell count, unspecified Is this a current diagnosis for this admission?: Yes (5) Diabetes mellitus type 2 in nonobese Is this a current diagnosis for this admission?: Yes (6) HTN (hypertension) Qualifiers: Hypertension type: essential hypertension Qualified Code(s): I10 - Essential (primary) hypertension Is this a current diagnosis for this admission?: Yes (7) CAD (coronary atherosclerotic disease) Qualifiers: Coronary Disease-Associated Artery/Lesion type: [place] artery [place] vs. transplanted heart: [place] heart Associated angina: without angina Qualified Code(s): I25.10 - Atherosclerotic heart disease of [place] coronary artery without angina pectoris Is this a current diagnosis for this admission?: Yes (8) H/O heart bypass surgery Is this a current diagnosis for this admission?: Yes (9) HLD (hyperlipidemia) Qualifiers: Hyperlipidemia type: unspecified Qualified Code(s): E78.5 - Hyperlipidemia, unspecified Is this a current diagnosis for this admission?: Yes (10) Chronic gouty arthritis Is this a current diagnosis for this admission?: Yes (11) Osteoarthritis involving multiple joints on both sides of body Is this a current diagnosis for this admission?: Yes (12) Right renal mass Is this a current diagnosis for this admission?: Yes - Time Time Spent with patient: 25-34 minutes Level of Care: IMCU Medications reviewed and adjusted accordingly: Yes Anticipated discharge: Home Within: Other - Inpatient Certification Based on my medical assessment, after consideration of the patient's comorbidities, presenting symptoms, or acuity I expect that the services needed warrant INPATIENT care.: Yes I certify that my determination is in accordance with my understanding of Medicare's requirements for reasonable and necessary INPATIENT services [42 CFR 412.3e].: Yes Medical Necessity: Significant Comorbidiites Make Outpatient Treatment Too Risky, Need Close Monitoring Due to Risk of Patient Decompensation, Need For IV Fluids, Need For Continuous Telemetry Monitoring, Need for IV Antibiotics, Risk of Complication if Not Cared For in Hospital, Risk of Diagnosis Which Will Require Inpatient Eval/Care/Monitoring 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 Start on Augmentin 875/125 mg p.o q12. Continue all other current medication management. Follow up on blood culture findings. I discussed case with Dr Ke Antonio, urologist, he agreed to consult with patient upon discharge from the hospital.
[2019-07-15] MEDS: EZETIMIBE 10 MG TABLET PO SCH (21:18)
[2019-07-15] MEDS: SIMVASTATIN 40 MG TABLET PO SCH (21:18)
[2019-07-16] MEDS: NORMAL SALINE 1000 ML 1,000 ML IV PRN ×2 (02:57→15:15)
[2019-07-16] MEDS: PIPERACILLIN SODIUM/TAZOBACTAM 3.375 GM in NORMAL SALINE 100 ML IV SCH ×4 (03:07→22:05)
[2019-07-16] MEDS: ASPIRIN 81 MG TABLET, ENT COATED PO SCH (09:50)
[2019-07-16] MEDS: OMEGA-3 ACID ETHYL ESTERS 1 GM CAPSULE PO SCH ×2 (09:50→18:49)
[2019-07-16] MEDS: LOSARTAN POTASSIUM 50 MG TABLET PO SCH (09:50)
[2019-07-16] MEDS: MULTIVITAMIN TABLET PO SCH (09:50)
[2019-07-16] MEDS: PANTOPRAZOLE SODIUM 40 MG TABLET.DR PO SCH (09:50)
[2019-07-16] MEDS: ENOXAPARIN SODIUM INJ 40 MG/0.4 ML DISP.SYRIN SUBCUT SCH (09:52)
[2019-07-16] MEDS: ALLOPURINOL 100 MG TABLET PO SCH (09:52)
[2019-07-16] MEDS: HYDROCHLOROTHIAZIDE 12.5 MG TABLET PO SCH (09:55)
[2019-07-16] MEDS: LORATADINE 10 MG TABLET PO SCH (10:01)
[2019-07-16] MEDS: INSULIN LISPRO 100 UNIT/ML 3 ML VIAL SUBCUT SCH ×4 (10:39→21:50)
[2019-07-16] MEDS: GLYBURIDE 5 MG TABLET PO SCH (10:41)
--- NOTE | 2019-07-16 17:24 | PDOC PROGRESS REPORT ---
Subjective Progress Note for:: 07/16/19 Subjective:: Patient had an episode of painless hematuria earlier today. He denied any abdominal pain, nausea, vomiting, or flank pain. No fever or chills. No chest pain or difficulty with breathing. Reason For Visit: CAD,HTN Physical Exam Vital Signs: Temp Pulse Resp BP Pulse Ox 97.9 F 71 17 122/81 99 07/16/19 11:21 07/16/19 14:00 07/16/19 11:21 07/16/19 11:21 07/16/19 11:21 Intake & Output 07/15/19 07/16/19 07/17/19 06:59 06:59 06:59 Intake Total 2508 3630 1100 Output Total 1625 2763 Balance 019 634 1616 Weight 74.3 kg 73.2 kg Physical Exam: General appearance: PRESENT: no acute distress, well-developed, well-nourished Head exam: PRESENT: atraumatic, normocephalic Eye exam: PRESENT: conjunctiva pink. ABSENT: pallor, scleral icterus Ear exam: PRESENT: normal external ear exam Mouth exam: PRESENT: moist Respiratory exam: PRESENT: clear to auscultation janes Cardiovascular exam: PRESENT: RRR. ABSENT: diastolic murmur, rubs, systolic murmur GI/Abdominal exam: PRESENT: normal bowel sounds, soft. ABSENT: distended, guarding, mass, organomegaly, rebound, tenderness Extremities exam: ABSENT: pedal edema Neurological exam: PRESENT: alert, awake, oriented to person, oriented to place, oriented to time, oriented to situation, CN II-XII grossly intact. ABSENT: motor sensory deficit Psychiatric exam: PRESENT: appropriate affect, normal mood. ABSENT: homicidal ideation, suicidal ideation Skin exam: PRESENT: dry, warm Results Laboratory Results: 07/13/19 05:06 07/13/19 05:06 Impressions: Abdomen Ultrasound 07/12/19 00:00 IMPRESSION: Right renal mass suspicious for renal cell carcinoma. A CT scan of the kidneys both prior to and following the administration of intravenous contrast, might prove helpful for further evaluation. Calcified lesion versus a stent in the lower pole of the right kidney. Fatty liver. copyright 2010 [employer]- All Rights Reserved Chest X-Ray 07/12/19 14:08 IMPRESSION: NO ACUTE RADIOGRAPHIC FINDING IN THE CHEST. Abdomen/Pelvis CT 07/14/19 08:00 IMPRESSION: Solid mass lesion of the right kidney representing renal cell carcinoma until proven otherwise. No obvious metastatic disease. Indeterminate sclerotic lesion left hemisacrum, likely bone island. Incidental note made of fatty liver TECHNICAL DOCUMENTATION: Quality ID # 436: Final reports with documentation of one or more dose reduction techniques (e.g., Automated exposure control, adjustment of the mA and/or kV according to patient size, use of iterative reconstruction technique) copyright 2011 [employer]- All Rights Reserved Assessment & Plan - Diagnosis (1) Fever Qualifiers: Fever type: unspecified Qualified Code(s): R50.9 - Fever, unspecified Is this a current diagnosis for this admission?: Yes (2) Chills Is this a current diagnosis for this admission?: Yes (3) Urinary frequency Is this a current diagnosis for this admission?: Yes (4) Leukocytosis Qualifiers: Leukocytosis type: unspecified Qualified Code(s): D72.829 - Elevated white blood cell count, unspecified Is this a current diagnosis for this admission?: Yes (5) Diabetes mellitus type 2 in nonobese Is this a current diagnosis for this admission?: Yes (6) HTN (hypertension) Qualifiers: Hypertension type: essential hypertension Qualified Code(s): I10 - Essential (primary) hypertension Is this a current diagnosis for this admission?: Yes (7) CAD (coronary atherosclerotic disease) Qualifiers: Coronary Disease-Associated Artery/Lesion type: [place] artery [place] vs. transplanted heart: [place] heart Associated angina: without angina Qualified Code(s): I25.10 - Atherosclerotic heart disease of [place] coronary artery without angina pectoris Is this a current diagnosis for this admission?: Yes (8) H/O heart bypass surgery Is this a current diagnosis for this admission?: Yes (9) HLD (hyperlipidemia) Qualifiers: Hyperlipidemia type: unspecified Qualified Code(s): E78.5 - Hyperlipidemia, unspecified Is this a current diagnosis for this admission?: Yes (10) Chronic gouty arthritis Is this a current diagnosis for this admission?: Yes (11) Osteoarthritis involving multiple joints on both sides of body Is this a current diagnosis for this admission?: Yes (12) Right renal mass Is this a current diagnosis for this admission?: Yes Plan: Patient is schedule to consult with Dr. Ke Antonio, urologist, on 07/19/2019 at 12:30 PM. (13) Painless hematuria Is this a current diagnosis for this admission?: Yes Plan: Continue IV Zosyn coverage and IV fluid support. Hold off discharge home today. Follow up on blood culture findings. Obtain CBC with diff in AM. Hematuria may be related to his right renal mass. - Time Time Spent with patient: 25-34 minutes Level of Care: TELE Medications reviewed and adjusted accordingly: Yes Anticipated discharge: Home Within: Other - Inpatient Certification Based on my medical assessment, after consideration of the patient's comorbidities, presenting symptoms, or acuity I expect that the services needed warrant INPATIENT care.: Yes I certify that my determination is in accordance with my understanding of Medicare's requirements for reasonable and necessary INPATIENT services [42 CFR 412.3e].: Yes Medical Necessity: Significant Comorbidiites Make Outpatient Treatment Too Risky, Need Close Monitoring Due to Risk of Patient Decompensation, Need For IV Fluids, Need For Continuous Telemetry Monitoring, Need for IV Antibiotics, Risk of Complication if Not Cared For in Hospital, Risk of Diagnosis Which Will Require Inpatient Eval/Care/Monitoring Post Hospital Care: D/C Electronic [employer]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 If there is recurrence of his hematuria we will hold Lovenox usage for DVT prophylaxis.
[2019-07-16 20:21] LABS: ABSOLUTE BASOPHILS # (AUTO) 0.1 10^3/uL (0.0-0.2); ABSOLUTE EOSINOPHILS # (AUTO) 0.3 10^3/uL (0.0-0.6); ABSOLUTE LYMPHOCYTES (AUTO) 2.7 10^3/uL (0.5-4.7); ABSOLUTE MONOCYTES (AUTO) 0.9 10^3/uL (0.1-1.4); ABSOLUTE NEUT (AUTO) 6.6 10^3/uL (1.7-8.2); BASOPHILS % (AUTO) 0.8 % (0-2); EOSINOPHILS % (AUTO) 2.6 % (0-6); HEMATOCRIT 34.7 % (37.9-51.0); HEMOGLOBIN 11.9 g/dL (13.5-17.0); LYMPHOCYTES % (AUTO) 25.6 % (13-45); MEAN CORPUSCULAR HEMOGLOBIN 31.2 pg (27.0-33.4); MEAN CORPUSCULAR HGB CONC 34.4 g/dL (32.0-36.0); MEAN CORPUSCULAR VOLUME 91 fl (80-97); MONOCYTES % (AUTO) 8.7 % (3-13); PLATELET COUNT 247 10^3/uL (150-450); RED BLOOD COUNT 3.82 10^6/uL (4.35-5.55); RED CELL DISTRIBUTION WIDTH 13.9 % (11.5-14.0); SEGMENTED NEUTROPHILS % (AUTO) 62.3 % (42-78); TOTAL CELLS COUNTED % (AUTO) 100 %; WHITE BLOOD COUNT 10.6 10^3/uL (4.0-10.5)
[2019-07-16] MEDS: SIMVASTATIN 40 MG TABLET PO SCH (22:06)
[2019-07-16] MEDS: EZETIMIBE 10 MG TABLET PO SCH (22:06)
[2019-07-17] MEDS: PIPERACILLIN SODIUM/TAZOBACTAM 3.375 GM in NORMAL SALINE 100 ML IV SCH ×4 (02:01→22:06)
[2019-07-17] MEDS: NORMAL SALINE 1000 ML 1,000 ML IV PRN (02:01)
[2019-07-17] MEDS: INSULIN LISPRO 100 UNIT/ML 3 ML VIAL SUBCUT SCH ×4 (09:00→22:28)
[2019-07-17] MEDS: OMEGA-3 ACID ETHYL ESTERS 1 GM CAPSULE PO SCH ×2 (11:13→18:27)
[2019-07-17] MEDS: ALLOPURINOL 100 MG TABLET PO SCH (11:13)
[2019-07-17] MEDS: ASPIRIN 81 MG TABLET, ENT COATED PO SCH (11:13)
[2019-07-17] MEDS: MULTIVITAMIN TABLET PO SCH (11:14)
[2019-07-17] MEDS: HYDROCHLOROTHIAZIDE 12.5 MG TABLET PO SCH (11:18)
[2019-07-17] MEDS: GLYBURIDE 5 MG TABLET PO SCH (11:18)
[2019-07-17] MEDS: LOSARTAN POTASSIUM 50 MG TABLET PO SCH (11:18)
[2019-07-17] MEDS: LORATADINE 10 MG TABLET PO SCH (11:18)
[2019-07-17] MEDS: PANTOPRAZOLE SODIUM 40 MG TABLET.DR PO SCH (11:19)
[2019-07-17] MEDS ORDERED: NORMAL SALINE 1000 ML 1,000 ML IV PRN (12:27)
--- NOTE | 2019-07-17 12:27 | PDOC PROGRESS REPORT ---
Subjective Progress Note for:: 07/17/19 Subjective:: Patient is currently doing much better Patient hematuria is all improving Patient's denied any abdominal pain no nausea no vomiting As per discussed with Dr. Connelly yesterday patient is going to stay in the weekend have appointment to see a urologist next week Reason For Visit: CAD,HTN Physical Exam Vital Signs: Temp Pulse Resp BP Pulse Ox 97.9 F 73 17 134/77 H 97 07/16/19 23:29 07/17/19 02:00 07/16/19 23:29 07/16/19 23:29 07/16/19 23:29 Intake & Output 07/16/19 07/17/19 07/18/19 06:59 06:59 06:59 Intake Total 3630 3235 Output Total 2763 1875 Balance 867 1360 Weight 73.2 kg 72.9 kg General appearance: PRESENT: no acute distress, well-developed, well-nourished Head exam: PRESENT: atraumatic, normocephalic Eye exam: PRESENT: conjunctiva pink, EOMI, PERRLA. ABSENT: scleral icterus Ear exam: PRESENT: normal external ear exam Mouth exam: PRESENT: moist, tongue midline Neck exam: PRESENT: full ROM. ABSENT: carotid bruit, JVD, lymphadenopathy, thyromegaly Respiratory exam: PRESENT: clear to auscultation janes Cardiovascular exam: PRESENT: RRR. ABSENT: diastolic murmur, rubs, systolic murmur Pulses: PRESENT: normal dorsalis pedis pul, +2 pedal pulses bilateral Vascular exam: PRESENT: normal capillary refill GI/Abdominal exam: PRESENT: normal bowel sounds, soft. ABSENT: distended, guarding, mass, organolmegaly, rebound, tenderness Rectal exam: PRESENT: deferred Musculoskeletal exam: PRESENT: ambulatory Neurological exam: PRESENT: alert, awake, oriented to person, oriented to place, oriented to time, oriented to situation, CN II-XII grossly intact. ABSENT: motor sensory deficit Psychiatric exam: PRESENT: appropriate affect, normal mood. ABSENT: homicidal ideation, suicidal ideation Skin exam: PRESENT: dry, intact, warm. ABSENT: cyanosis, rash Results Laboratory Results: 07/16/19 19:28 07/13/19 05:06 07/16/19 19:28 WBC 10.6 H RBC 3.82 L Hgb 11.9 L Hct 34.7 L MCV 91 MCH 31.2 MCHC 34.4 RDW 13.9 Plt Count 247 Seg Neutrophils % 62.3 Impressions: Abdomen Ultrasound 07/12/19 00:00 IMPRESSION: Right renal mass suspicious for renal cell carcinoma. A CT scan of the kidneys both prior to and following the administration of intravenous contrast, might prove helpful for further evaluation. Calcified lesion versus a stent in the lower pole of the right kidney. Fatty liver. copyright 2010 [employer]- All Rights Reserved Chest X-Ray 07/12/19 14:08 IMPRESSION: NO ACUTE RADIOGRAPHIC FINDING IN THE CHEST. Abdomen/Pelvis CT 07/14/19 08:00 IMPRESSION: Solid mass lesion of the right kidney representing renal cell carcinoma until proven otherwise. No obvious metastatic disease. Indeterminate sclerotic lesion left hemisacrum, likely bone [place]. Incidental note made of fatty liver TECHNICAL DOCUMENTATION: Quality ID # 436: Final reports with documentation of one or more dose reduction techniques (e.g., Automated exposure control, adjustment of the mA and/or kV according to patient size, use of iterative reconstruction technique) copyright 2011 [employer]- All Rights Reserved Assessment & Plan - Diagnosis (1) Fever Qualifiers: Fever type: unspecified Qualified Code(s): R50.9 - Fever, unspecified Is this a current diagnosis for this admission?: Yes (2) Leukocytosis Qualifiers: Leukocytosis type: unspecified Qualified Code(s): D72.829 - Elevated white blood cell count, unspecified Is this a current diagnosis for this admission?: Yes (3) Painless hematuria Is this a current diagnosis for this admission?: Yes (4) Right renal mass Is this a current diagnosis for this admission?: Yes (5) CAD (coronary atherosclerotic disease) Qualifiers: Coronary Disease-Associated Artery/Lesion type: [place] artery [place] vs. transplanted heart: [place] heart Associated angina: without angina Qualified Code(s): I25.10 - Atherosclerotic heart disease of [place] coronary artery without angina pectoris Is this a current diagnosis for this admission?: Yes (6) Diabetes mellitus type 2 in nonobese Is this a current diagnosis for this admission?: Yes (7) HTN (hypertension) Qualifiers: Hypertension type: essential hypertension Qualified Code(s): I10 - Essential (primary) hypertension Is this a current diagnosis for this admission?: Yes - Time Time Spent with patient: 15-24 minutes Level of Care: TELE Medications reviewed and adjusted accordingly: Yes Anticipated discharge: Other Within: Other - Plan Summary Plan Summary: Continues the IV antibiotic Continues to IV fluid
[2019-07-17 18:10] LABS: ABSOLUTE BASOPHILS # (AUTO) 0.1 10^3/uL (0.0-0.2); ABSOLUTE EOSINOPHILS # (AUTO) 0.3 10^3/uL (0.0-0.6); ABSOLUTE LYMPHOCYTES (AUTO) 2.5 10^3/uL (0.5-4.7); ABSOLUTE MONOCYTES (AUTO) 0.8 10^3/uL (0.1-1.4); ABSOLUTE NEUT (AUTO) 6.5 10^3/uL (1.7-8.2); BASOPHILS % (AUTO) 0.8 % (0-2); EOSINOPHILS % (AUTO) 2.9 % (0-6); HEMATOCRIT 34.5 % (37.9-51.0); HEMOGLOBIN 11.9 g/dL (13.5-17.0); LYMPHOCYTES % (AUTO) 24.6 % (13-45); MEAN CORPUSCULAR HEMOGLOBIN 31.1 pg (27.0-33.4); MEAN CORPUSCULAR HGB CONC 34.6 g/dL (32.0-36.0); MEAN CORPUSCULAR VOLUME 90 fl (80-97); MONOCYTES % (AUTO) 7.5 % (3-13); PLATELET COUNT 262 10^3/uL (150-450); RED BLOOD COUNT 3.83 10^6/uL (4.35-5.55); RED CELL DISTRIBUTION WIDTH 13.8 % (11.5-14.0); SEGMENTED NEUTROPHILS % (AUTO) 64.2 % (42-78); TOTAL CELLS COUNTED % (AUTO) 100 %; WHITE BLOOD COUNT 10.2 10^3/uL (4.0-10.5)
[2019-07-17] MEDS: SIMVASTATIN 40 MG TABLET PO SCH (22:06)
[2019-07-17] MEDS: EZETIMIBE 10 MG TABLET PO SCH (22:06)
[2019-07-18] MEDS: PIPERACILLIN SODIUM/TAZOBACTAM 3.375 GM in NORMAL SALINE 100 ML IV SCH ×4 (03:15→21:29)
[2019-07-18 06:34] LABS: ANION GAP 11 (5-19); BLOOD UREA NITROGEN 17 mg/dL (7-20); CALCIUM 8.8 mg/dL (8.4-10.2); CARBON DIOXIDE 23 mmol/L (22-30); CHLORIDE 105 mmol/L (98-107); GLUCOSE 169 mg/dL (75-110); POTASSIUM 4.4 mmol/L (3.6-5.0)
[2019-07-18] MEDS: INSULIN LISPRO 100 UNIT/ML 3 ML VIAL SUBCUT SCH ×4 (09:58→22:34)
[2019-07-18] MEDS: ALLOPURINOL 100 MG TABLET PO SCH (09:59)
[2019-07-18] MEDS: METFORMIN HCL 500 MG TABLET PO SCH ×2 (09:59→18:22)
[2019-07-18] MEDS: PANTOPRAZOLE SODIUM 40 MG TABLET.DR PO SCH (09:59)
[2019-07-18] MEDS: OMEGA-3 ACID ETHYL ESTERS 1 GM CAPSULE PO SCH ×2 (09:59→18:22)
[2019-07-18] MEDS: ASPIRIN 81 MG TABLET, ENT COATED PO SCH (09:59)
[2019-07-18] MEDS: GLYBURIDE 5 MG TABLET PO SCH (09:59)
[2019-07-18] MEDS: MULTIVITAMIN TABLET PO SCH (09:59)
[2019-07-18] MEDS: HYDROCHLOROTHIAZIDE 12.5 MG TABLET PO SCH (09:59)
[2019-07-18] MEDS: LORATADINE 10 MG TABLET PO SCH (10:00)
[2019-07-18] MEDS: LOSARTAN POTASSIUM 50 MG TABLET PO SCH (10:00)
--- NOTE | 2019-07-18 11:33 | PDOC PROGRESS REPORT ---
Subjective Progress Note for:: 07/18/19 Subjective:: Patient is currently doing much better Patient hematuria is all improving Patient's denied any abdominal pain no nausea no vomiting As per discussed with Dr. Connelly yesterday patient is going to stay in the weekend have appointment to see a urologist next week Reason For Visit: CAD,HTN Physical Exam Vital Signs: Temp Pulse Resp BP Pulse Ox 98.1 F 81 20 147/82 H 97 07/18/19 07:33 07/18/19 07:33 07/18/19 07:33 07/18/19 07:33 07/18/19 07:33 Intake & Output 07/17/19 07/18/19 07/19/19 06:59 06:59 06:59 Intake Total 3235 3288 Output Total 1875 2675 Balance 1360 613 Weight 72.9 kg 73 kg General appearance: PRESENT: no acute distress, well-developed, well-nourished Head exam: PRESENT: atraumatic, normocephalic Eye exam: PRESENT: conjunctiva pink, EOMI, PERRLA. ABSENT: scleral icterus Ear exam: PRESENT: normal external ear exam Mouth exam: PRESENT: moist, tongue midline Neck exam: PRESENT: full ROM. ABSENT: carotid bruit, JVD, lymphadenopathy, thyromegaly Respiratory exam: PRESENT: clear to auscultation janes Cardiovascular exam: PRESENT: RRR. ABSENT: diastolic murmur, rubs, systolic murmur Pulses: PRESENT: normal dorsalis pedis pul, +2 pedal pulses bilateral Vascular exam: PRESENT: normal capillary refill GI/Abdominal exam: PRESENT: normal bowel sounds, soft. ABSENT: distended, guarding, mass, organolmegaly, rebound, tenderness Rectal exam: PRESENT: deferred Musculoskeletal exam: PRESENT: ambulatory Neurological exam: PRESENT: alert, awake, oriented to person, oriented to place, oriented to time, oriented to situation, CN II-XII grossly intact. ABSENT: m otor sensory deficit Psychiatric exam: PRESENT: appropriate affect, normal mood. ABSENT: homicidal ideation, suicidal ideation Skin exam: PRESENT: dry, intact, warm. ABSENT: cyanosis, rash Results Laboratory Results: 07/17/19 17:30 07/18/19 05:18 07/17/19 07/18/19 17:30 05:18 WBC 10.2 RBC 3.83 L Hgb 11.9 L Hct 34.5 L MCV 90 MCH 31.1 MCHC 34.6 RDW 13.8 Plt Count 262 Seg Neutrophils % 64.2 Sodium 138.5 Potassium 4.4 Chloride 105 Carbon Dioxide 23 Anion Gap 11 BUN 17 Creatinine 0.77 Est GFR ( Amer) > 60 Glucose 169 H Calcium 8.8 07/12/19 17:06 Blood Blood Culture - Final NO GROWTH IN 5 DAYS 07/12/19 15:55 Blood Blood Culture - Final NO GROWTH IN 5 DAYS Impressions: Abdomen Ultrasound 07/12/19 00:00 IMPRESSION: Right renal mass suspicious for renal cell carcinoma. A CT scan of the kidneys both prior to and following the administration of intravenous contrast, might prove helpful for further evaluation. Calcified lesion versus a stent in the lower pole of the right kidney. Fatty liver. copyright 2010 [employer]- All Rights Reserved Chest X-Ray 07/12/19 14:08 IMPRESSION: NO ACUTE RADIOGRAPHIC FINDING IN THE CHEST. Abdomen/Pelvis CT 07/14/19 08:00 IMPRESSION: Solid mass lesion of the right kidney representing renal cell carcinoma until proven otherwise. No obvious metastatic disease. Indeterminate sclerotic lesion left hemisacrum, likely bone [place]. Incidental note made of fatty liver TECHNICAL DOCUMENTATION: Quality ID # 436: Final reports with documentation of one or more dose reduction techniques (e.g., Automated exposure control, adjustment of the mA and/or kV according to patient size, use of iterative reconstruction technique) copyright 2010 [employer]- All Rights Reserved Assessment & Plan - Diagnosis (1) Fever Qualifiers: Fever type: unspecified Qualified Code(s): R50.9 - Fever, unspecified Is this a current diagnosis for this admission?: Yes (2) Leukocytosis Qualifiers: Leukocytosis type: unspecified Qualified Code(s): D72.829 - Elevated white blood cell count, unspecified Is this a current diagnosis for this admission?: Yes (3) Painless hematuria Is this a current diagnosis for this admission?: Yes (4) Right renal mass Is this a current diagnosis for this admission?: Yes (5) CAD (coronary atherosclerotic disease) Qualifiers: Coronary Disease-Associated Artery/Lesion type: [place] artery [place] vs. transplanted heart: [place] heart Associated angina: without angina Qualified Code(s): I25.10 - Atherosclerotic heart disease of [place] coronary artery without angina pectoris Is this a current diagnosis for this admission?: Yes (6) Diabetes mellitus type 2 in nonobese Is this a current diagnosis for this admission?: Yes (7) HTN (hypertension) Qualifiers: Hypertension type: essential hypertension Qualified Code(s): I10 - Essential (primary) hypertension Is this a current diagnosis for this admission?: Yes - Time Time Spent with patient: 15-24 minutes Level of Care: TELE Medications reviewed and adjusted accordingly: Yes Anticipated discharge: Home Within: within 24 hours - Plan Summary Plan Summary: Continues the IV antibiotic continues the current medications
[2019-07-18 17:43] LABS: ABSOLUTE BASOPHILS # (AUTO) 0.1 10^3/uL (0.0-0.2); ABSOLUTE EOSINOPHILS # (AUTO) 0.3 10^3/uL (0.0-0.6); ABSOLUTE LYMPHOCYTES (AUTO) 2.8 10^3/uL (0.5-4.7); ABSOLUTE MONOCYTES (AUTO) 0.9 10^3/uL (0.1-1.4); ABSOLUTE NEUT (AUTO) 6.4 10^3/uL (1.7-8.2); BASOPHILS % (AUTO) 0.8 % (0-2); EOSINOPHILS % (AUTO) 2.7 % (0-6); HEMATOCRIT 33.5 % (37.9-51.0); HEMOGLOBIN 11.5 g/dL (13.5-17.0); LYMPHOCYTES % (AUTO) 26.6 % (13-45); MEAN CORPUSCULAR HEMOGLOBIN 30.7 pg (27.0-33.4); MEAN CORPUSCULAR HGB CONC 34.3 g/dL (32.0-36.0); MEAN CORPUSCULAR VOLUME 89 fl (80-97); MONOCYTES % (AUTO) 8.3 % (3-13); PLATELET COUNT 264 10^3/uL (150-450); RED BLOOD COUNT 3.75 10^6/uL (4.35-5.55); RED CELL DISTRIBUTION WIDTH 13.8 % (11.5-14.0); SEGMENTED NEUTROPHILS % (AUTO) 61.6 % (42-78); TOTAL CELLS COUNTED % (AUTO) 100 %; WHITE BLOOD COUNT 10.3 10^3/uL (4.0-10.5)
[2019-07-18] MEDS: SIMVASTATIN 40 MG TABLET PO SCH (21:29)
[2019-07-18] MEDS: EZETIMIBE 10 MG TABLET PO SCH (21:29)
[2019-07-19] MEDS: PIPERACILLIN SODIUM/TAZOBACTAM 3.375 GM in NORMAL SALINE 100 ML IV SCH ×2 (04:30→09:43)
[2019-07-19 06:42] LABS: ANION GAP 10 (5-19); BLOOD UREA NITROGEN 16 mg/dL (7-20); CALCIUM 9.2 mg/dL (8.4-10.2); CARBON DIOXIDE 24 mmol/L (22-30); CHLORIDE 104 mmol/L (98-107); GLUCOSE 112 mg/dL (75-110); POTASSIUM 4.9 mmol/L (3.6-5.0)
--- NOTE | 2019-07-19 08:42 | PDOC DISCHARGE SUMMARY ---
Impression - Admit/DC Date/PCP Admission Date/Primary Care Provider: 07/12/19 14:14 MAXX MCKEON Discharge Date: 07/19/19 - Discharge Diagnosis (1) Fever Is this a current diagnosis for this admission?: Yes (2) Chills Is this a current diagnosis for this admission?: Yes (3) Urinary frequency Is this a current diagnosis for this admission?: Yes (4) Leukocytosis Is this a current diagnosis for this admission?: Yes (5) Diabetes mellitus type 2 in nonobese Is this a current diagnosis for this admission?: Yes (6) HTN (hypertension) Is this a current diagnosis for this admission?: Yes (7) CAD (coronary atherosclerotic disease) Is this a current diagnosis for this admission?: Yes (8) H/O heart bypass surgery Is this a current diagnosis for this admission?: Yes (9) HLD (hyperlipidemia) Is this a current diagnosis for this admission?: Yes (10) Chronic gouty arthritis Is this a current diagnosis for this admission?: Yes (11) Osteoarthritis involving multiple joints on both sides of body Is this a current diagnosis for this admission?: Yes (12) Right renal mass Is this a current diagnosis for this admission?: Yes (13) Painless hematuria Is this a current diagnosis for this admission?: Yes - Assessment Summary: Patient was admitted for fever, chills, and abdominal pain with concern for possible acute cholecystitis. His abdominal ultrasound did revealed right renal mass in the mid to lower pole. His CT scan abdomen and pelvis did confirm right renal mass with presumptive diagnosis for renal cell cancer until proven otherwise. I consulted with Dr Swati Fall, urologist at [facility] who agreed to see patient on 07/19/2019 in his office. In the process of discharging patient on 07/16/2019 he had episode of painless hematuria. His discharged was held until today to monitor his hematuria. Patient reported intermittent episodes of small quantity of hematuria since my last clinical evaluation. He is agreeable to discharge home today and follow up with Dr Fall this afternoon in his office. His blood culture was no growth after appropriated incubation time. His urine culture colony growth was less than clinically significant population. He will follow up with me in the office as instructed upon discharge. - Additional Information Resuscitation Status: Full Code Referrals: MAXX MCKEON MD [Primary Care Provider] - 07/23/19 9:00 am SWATI FALL MD [NO LOCAL MD] - Home Medications: Acetaminophen 1,000 mg PO Q6HP PRN 07/12/19 Allopurinol [Zyloprim 100 mg Tablet] 100 mg PO DAILY 07/12/19 Ezetimibe/Simvastatin [Ezetimibe-Simvastatin 10-40 mg] 1 tab PO DAILY 07/12/19 Glucosam/Chond/Collagen/Hyalur [Glucosamine Chondroitin Cap] 1 tab PO DAILY 07/12/19 Glyburide/Metformin HCl [Glyburide-Metformin 5-500 mg] 1 tab PO BID 07/12/19 Loratadine [Claritin 10 mg Tablet] 10 mg PO DAILY 07/12/19 Losartan/Hydrochlorothiazide [Losartan-Hctz 50-12.5 mg Tab] 1 tab PO DAILY 07/12/19 Multivit-Min/FA/Lycopen/Lutein [Centrum Silver Men Tablet] 1 tab PO DAILY 07/12/19 [place]-3 Acid Ethyl Esters [Lovaza 1 gm Capsule] 2 gm PO BID 07/12/19 Omeprazole 40 mg PO Q6AM 07/12/19 History of Present Illiness History of Present Illness: DEBORA EISENBERG is a 69 year old male patient known to my practice who presented to the [facility] earlier today as walk-in with 2 days history of fever and chills associated abdominal pain and nausea. Patient reported associated increase urinary frequency and episodes of dizziness. Dizziness was mostly associated with change in position from sitting to standing and associated with loss of stability. He avoided driving due to his dizziness. He reported associated headache, sinus congestion, back pain in his waist region that worsen with deep breathing. His initial evaluation in the office revealed significant leukocytosis with left shift and upper abdominal region tenderness, particularly RUQ with positive Estevez sign in the office. In view of his presentation there was concern for possible gallbladder disease process. He was advised hospitalization. due to nonavailability of inpatient bed, patient was directed to the ED with treatment orders. His medical morbidities are as listed below. Hospital Course Hospital Course: Patient was admitted for fever, chills, and abdominal pain with concern for pos sible acute cholecystitis. His abdominal ultrasound did revealed right renal mass in the mid to lower pole. His CT scan abdomen and pelvis did confirm right renal mass with presumptive diagnosis for renal cell cancer until proven otherwise. I consulted with Dr Swati Fall, urologist at [facility] who agreed to see patient on 07/19/2019 in his office. In the process of discharging patient on 07/16/2019 he had episode of painless hematuria. His discharged was held until today to monitor his hematuria. Patient reported intermittent episodes of small quantity of hematuria since my last clinical evaluation. He is agreeable to discharge home today and follow up with Dr Fall this afternoon in his office. His blood culture was no growth after appropriated incubation time. His urine culture colony growth was less than clinically significant population. He will follow up with me in the office as instructed upon discharge. Physical Exam Vital Signs: Temp Pulse Resp BP Pulse Ox 97.8 F 75 17 157/94 H 100 07/18/19 23:15 07/19/19 02:00 07/18/19 23:15 07/18/19 23:15 07/18/19 23:15 Intake & Output 07/18/19 07/19/19 07/20/19 06:59 06:59 06:59 Intake Total 3288 1066 Output Total 2675 1350 Balance 613 -284 Weight 73 kg 73.4 kg General appearance: PRESENT: no acute distress, well-developed, well-nourished Head exam: PRESENT: atraumatic, normocephalic Eye exam: PRESENT: conjunctiva pink. ABSENT: pallor, scleral icterus Ear exam: PRESENT: normal external ear exam Mouth exam: PRESENT: moist Respiratory exam: PRESENT: clear to auscultation janes Cardiovascular exam: PRESENT: RRR. ABSENT: diastolic murmur, rubs, systolic murmur GI/Abdominal exam: PRESENT: normal bowel sounds, soft. ABSENT: distended, guarding, mass, organomegaly, rebound, tenderness Extremities exam: ABSENT: pedal edema Neurological exam: PRESENT: alert, awake, oriented to person, oriented to place, oriented to time, oriented to situation, CN II-XII grossly intact. ABSENT: motor sensory deficit Psychiatric exam: PRESENT: appropriate affect, normal mood. ABSENT: homicidal ideation, suicidal ideation Skin exam: PRESENT: dry, warm Results Laboratory Results: WBC 10.3 10^3/uL (4.0-10.5) 07/18/19 17:30 RBC 3.75 10^6/uL (4.35-5.55) L 07/18/19 17:30 Hgb 11.5 g/dL (13.5-17.0) L 07/18/19 17:30 Hct 33.5 % (37.9-51.0) L 07/18/19 17:30 MCV 89 fl (80-97) 07/18/19 17:30 MCH 30.7 pg (27.0-33.4) 07/18/19 17:30 MCHC 34.3 g/dL (32.0-36.0) 07/18/19 17:30 RDW 13.8 % (11.5-14.0) 07/18/19 17:30 Plt Count 264 10^3/uL (150-450) 07/18/19 17:30 Lymph % (Auto) 26.6 % (13-45) 07/18/19 17:30 [place] % (Auto) 8.3 % (3-13) 07/18/19 17:30 Eos % (Auto) 2.7 % (0-6) 07/18/19: Baso % (Auto) 0.8 % (0-2) 07/18/19 17:30 Absolute Neuts (auto) 6.4 10^3/uL (1.7-8.2) 07/18/19 17:30 Absolute Lymphs (auto) 2.8 10^3/uL (0.5-4.7) 07/18/19 17:30 Absolute Monos (auto) 0.9 10^3/uL (0.1-1.4) 07/18/19 17:30 Absolute Eos (auto) 0.3 10^3/uL (0.0-0.6) 07/18/19 17:30 Absolute Basos (auto) 0.1 10^3/uL (0.0-0.2) 07/18/19 17:30 Seg Neutrophils % 61.6 % (42-78) 07/18/19 17:30 Sodium 137.9 mmol/L (137-145) 07/19/19 05:38 Potassium 4.9 mmol/L (3.6-5.0) 07/19/19 05:38 Chloride 104 mmol/L (98-107) 07/19/19 05:38 Carbon Dioxide 24 mmol/L (22-30) 07/19/19 05:38 Anion Gap 10 (5-19) 07/19/19 05:38 BUN 16 mg/dL (7-20) 07/19/19 05:38 Creatinine 0.83 mg/dL (0.52-1.25) 07/19/19 05:38 Est GFR ( Amer) > 60 (>60) 07/19/19 05:38 Est GFR (MDRD) Non-Af > 60 (>60) 07/19/19 05:38 Glucose 112 mg/dL (75-110) H 07/19/19 05:38 POC Glucose 116 mg/dL (70-110) H 07/19/19 08:08 Calcium 9.2 mg/dL (8.4-10.2) 07/19/19 05:38 Total Bilirubin 0.8 mg/dL (0.2-1.3) 07/13/19 05:06 Direct Bilirubin 0.1 mg/dL (0.0-0.4) 07/13/19 05:06 Neonat Total Bilirubin Not Reportable 07/13/19 05:06 Neonat Direct Bilirubin Not Reportable 07/13/19 05:06 Neonat Indirect Bili Not Reportable 07/13/19 05:06 AST 80 U/L (17-59) H 07/13/19 05:06 ALT 62 U/L (<50) 07/13/19 05:06 Alkaline Phosphatase 73 U/L (38-126) 07/13/19 05:06 Total Protein 6.6 g/dL (6.3-8.2) 07/13/19 05:06 Albumin 3.6 g/dL (3.5-5.0) 07/13/19 05:06 Urine Color YELLOW 07/12/19 14:47 Urine Appearance SLIGHTLY-CLOUDY 07/12/19 14:47 Urine pH 6.0 (5.0-9.0) 07/12/19 14:47 Ur Specific [place] 1.018 07/12/19 14:47 Urine Protein 100 mg/dL (NEGATIVE) H 07/12/19 14:47 Urine Glucose (UA) NEGATIVE mg/dL (NEGATIVE) 07/12/19 14:47 Urine Ketones NEGATIVE mg/dL (NEGATIVE) 07/12/19 14:47 Urine Blood LARGE (NEGATIVE) H 07/12/19 14:47 Urine Nitrite (Reflex) NEGATIVE (NEGATIVE) 07/12/19 14:47 Urine Bilirubin NEGATIVE (NEGATIVE) 07/12/19 14:47 Urine Urobilinogen NEGATIVE mg/dL (<2.0) 07/12/19 14:47 Leukocyte Esterase Rfl NEGATIVE (NEGATIVE) 07/12/19 14:47 Urine RBC (Auto) >182 /HPF 07/12/19 14:47 Urine Bacteria (Auto) TRACE /HPF 07/12/19 14:47 Urine WBC (Reflex) 13 /HPF 07/12/19 14:47 Squamous Epi Cells Auto <1 /HPF 07/12/19 14:47 Urine Mucus (Auto) FEW /LPF 07/12/19 14:47 Urine Ascorbic Acid NEGATIVE (NEGATIVE) 07/12/19 14:47 Impressions: Abdomen Ultrasound 07/12/19 00:00 IMPRESSION: Right renal mass suspicious for renal cell carcinoma. A CT scan of the kidneys both prior to and following the administration of intravenous contrast, might prove helpful for further evaluation. Calcified lesion versus a stent in the lower pole of the right kidney. Fatty liver. copyright 2011 [employer] All Rights Reserved Chest X-Ray 07/12/19 14:08 IMPRESSION: NO ACUTE RADIOGRAPHIC FINDING IN THE CHEST. Abdomen/Pelvis CT 07/14/19 08:00 IMPRESSION: Solid mass lesion of the right kidney representing renal cell carcinoma until proven otherwise. No obvious metastatic disease. Indeterminate sclerotic lesion left hemisacrum, likely bone [place]. Incidental note made of fatty liver TECHNICAL DOCUMENTATION: Quality ID # 436: Final reports with documentation of one or more dose reduction techniques (e.g., Automated exposure control, adjustment of the mA and/or kV according to patient size, use of iterative reconstruction technique) copyright 2011 [employer] All Rights Reserved Plan Health Concerns: Attention to his renal mass suggestive of renal cell carcinoma with intermittent hematuria. Plan of Treatment: Immediate follow up with urologist for further evaluation and management of his right renal mass. Goals: Immediate intervention for his right renal mass. Time Spent: Greater than 30 Minutes - Post discharge care plan discussion with patient and spouse at bedside. Stroke Is this a Stroke Patient?: No Acute Heart Failure - Is this a Heart Failure Patient?: No
[2019-07-19 08:54] VITALS: BP 144/86
[2019-07-19] MEDS: INSULIN LISPRO 100 UNIT/ML 3 ML VIAL SUBCUT SCH ×2 (09:28→11:23)
[2019-07-19] MEDS ORDERED: COLCHICINE 0.6 MG TABLET PO ONE (09:30)
[2019-07-19] MEDS: HYDROCHLOROTHIAZIDE 12.5 MG TABLET PO SCH (09:45)
[2019-07-19] MEDS: METFORMIN HCL 500 MG TABLET PO SCH (09:45)
[2019-07-19] MEDS: ALLOPURINOL 100 MG TABLET PO SCH (09:45)
[2019-07-19] MEDS: ASPIRIN 81 MG TABLET, ENT COATED PO SCH (09:45)
[2019-07-19] MEDS: MULTIVITAMIN TABLET PO SCH (09:45)
[2019-07-19] MEDS: PANTOPRAZOLE SODIUM 40 MG TABLET.DR PO SCH (09:45)
[2019-07-19] MEDS: OMEGA-3 ACID ETHYL ESTERS 1 GM CAPSULE PO SCH (09:45)
[2019-07-19] MEDS: LORATADINE 10 MG TABLET PO SCH (09:45)
[2019-07-19] MEDS: LOSARTAN POTASSIUM 50 MG TABLET PO SCH (09:45)
[2019-07-19] MEDS: GLYBURIDE 5 MG TABLET PO SCH (09:46)
[2019-07-19] MEDS ORDERED: COLCHICINE 0.6 MG TABLET PO SCH (10:30)
== END 2019-07-19 11:59 | disposition home or self-care (01) | DRG 688 ==
LOC: ER 11:56 → EH 14:14 → 3W 18:14 → 5 07-16 06:53
PROVIDERS: ADMIT Internal Medicine Geriatric Medicine; ATTEND Internal Medicine Geriatric Medicine
DX: C64.1 Malignant neoplasm of right kidney, except renal pelvis (principal); R35.0 Frequency of micturition; E11.9 Type 2 diabetes mellitus without complications; I10 Essential (primary) hypertension; I25.10 Atherosclerotic heart disease of native coronary artery without angina pectoris; E78.5 Hyperlipidemia, unspecified; M1A.9XX0 Chronic gout, unspecified, without tophus (tophi); M89.49 Other hypertrophic osteoarthropathy, multiple sites; N28.89 Other specified disorders of kidney and ureter; R31.9 Hematuria, unspecified; E78.00 Pure hypercholesterolemia, unspecified; D72.829 Elevated white blood cell count, unspecified; I25.2 Old myocardial infarction; Z95.1 Presence of aortocoronary bypass graft; Z79.899 Other long term (current) drug therapy; Z87.891 Personal history of nicotine dependence; Z79.82 Long term (current) use of aspirin; Z79.84 Long term (current) use of oral hypoglycemic drugs; Z95.5 Presence of coronary angioplasty implant and graft
CPT/HCPCS: 36415; 71046; 74178; 76700; 80048; 80053; 81001; 82962; 85025; 87040; 87070; 87086; 99285; J1650; J1815; J2543; J3490; J7030; J7050